=== PATIENT | male | born 1950 | race Caucasian/White ===

== ENCOUNTER → 2017-09-26 10:42 | Outpatient (CLI) | payer MEDICARE, OTHER, SELFPAY ==
[2017-09-26 11:03] LABS: Add Manual Diff / Slide Review NO; Basophils Percent Auto 1.6 % (0-2); Eosinophils Percent Auto 5.4 % (2-4); Hematocrit 35.5 % (41-53); Lymphocytes Percent Auto 16.8 % (25-40); Mean Corpuscular HGB Conc 33.9 % (30-36); Mean Corpuscular Hemoglobin 29.3 PG (26-34); Mean Corpuscular Volume 86.5 fL (80-100); Monocytes Percent Auto 8.3 % (3-14); Neutrophils Absolute Auto 2400 /uL (3000-5900); Neutrophils Percent Auto 67.9 % (50-75); Platelet Count 190 X10^3/uL (150-400); Red Cell Distribution Width 14.8 % (11.6-14.8); White Blood Cell Count 3.5 X10^3/uL (4.5-11.0)
[2017-09-26 11:13] LABS: Alanine Aminotransferase 22 IU/L (21-72); Albumin 4.2 g/dL (3.5-5.0); Albumin Globulin Ratio 1.2 (1.0-2.8); Alkaline Phosphatase 58 U/L (38-126); Aspartate Aminotransferase 21 IU/L (17-59); BUN Creatinine Ratio 23.6 (6-22); Bilirubin Total 0.4 mg/dL (0.2-1.3); Blood Urea Nitrogen 26 mg/dL (9-20); Calcium 9.7 mg/dL (8.4-10.2); Carbon Dioxide 29 mmol/L (22-32); Chloride 104 mmol/L (98-107); Estimated Glomerular Filt Rate > 60.0 mL/min (>60); Globulin 3.6 g/dL (1.7-4.1); Glucose 113 mg/dL (80-110); HEMOLYSIS < 15 (0-50); Potassium 4.8 mmol/L (3.4-5.1); Sodium 140 mmol/L (137-145); Total Protein 7.8 g/dL (6.3-8.2)
[2017-09-26 11:44] LABS: Carcinoembryonic Antigen 2.5 ng/mL (0.1-3.0)
== END ==
PROVIDERS: Family Provider Family Medicine; PCP Family Medicine; Visit Provider Nurse Practitioner Gerontology
DX: C76.0 Malignant neoplasm of head, face and neck (principal); R97.0 Elevated carcinoembryonic antigen [CEA]
CPT/HCPCS: 36415; 80053; 82378; 85025

== ENCOUNTER → 2018-07-09 08:21 | Outpatient (CLI) | payer MEDICARE, OTHER, SELFPAY ==
[2018-07-09 08:36] LABS: Add Manual Diff / Slide Review NO; Basophils Absolute Auto 100 /uL (0-100); Basophils Percent Auto 1.5 % (0-2); Eosinophils Absolute Auto 300 /uL (0-450); Hematocrit 41.3 % (41-53); Hemoglobin 13.9 g/dL (13.5-17.5); Lymphocytes Absolute Auto 1000 /uL (1100-4500); Lymphocytes Percent Auto 20.6 % (25-40); Mean Corpuscular HGB Conc 33.7 % (30-36); Mean Corpuscular Hemoglobin 28.5 PG (26-34); Mean Corpuscular Volume 84.6 fL (80-100); Monocytes Absolute Auto 400 /uL (0-900); Monocytes Percent Auto 9.7 % (3-14); Neutrophils Absolute Auto 2800 /uL (1500-7000); Neutrophils Percent Auto 61.2 % (50-75); Platelet Count 199 X10^3/uL (150-400); Red Blood Cell Count 4.88 X10^6/uL (4.5-5.9); Red Cell Distribution Width 15.1 % (11.6-14.8); White Blood Cell Count 4.6 X10^3/uL (4.5-11.0)
[2018-07-09 08:54] LABS: Alanine Aminotransferase 23 IU/L (21-72); Albumin 4.3 g/dL (3.5-5.0); Albumin Globulin Ratio 1.3 (1.0-2.8); Alkaline Phosphatase 65 U/L (38-126); Aspartate Aminotransferase 25 IU/L (17-59); BUN Creatinine Ratio 16.7 (6-22); Bilirubin Total 0.3 mg/dL (0.2-1.3); Blood Urea Nitrogen 20 mg/dL (9-20); Calcium 9.6 mg/dL (8.4-10.2); Carbon Dioxide 25 mmol/L (22-32); Chloride 106 mmol/L (98-107); Estimated Glomerular Filt Rate > 60.0 mL/min (>60); Globulin 3.4 g/dL (1.7-4.1); Glucose 101 mg/dL (80-110); HEMOLYSIS < 15 (0-50); Lactate Dehydrogenase 329 U/L (313-618); Potassium 5.2 mmol/L (3.4-5.1); Sodium 139 mmol/L (137-145); Total Protein 7.7 g/dL (6.3-8.2)
--- NOTE | 2018-07-09 13:07 | DI.CT.S_ITS ---
PROCEDURE: CT CHEST W CON INDICATIONS: head and neck cancer, BOT TECHNIQUE: After the administration of intravenous contrast, 5 mm thick sections acquired from the pulmonary apices to the posterior costophrenic angles. 7 mm thick coronal and sagittal MIP reformats were acquired. For radiation dose reduction, the following was used: automated exposure control, adjustment of mA and/or kV according to patient size. COMPARISON: [facility], CT, CT SOFT TISSUE NECK W CON, 07/09/2018, 12:30. [facility], CT, CT SOFT TISSUE NECK WITH CONTRAST, 06/11/2017, 11:09. [facility], CT, PE STUDY (CTA CHEST), 08/20/2014, 10:02. [place], [place], PET/CT SKULL BASE TO MID THIGH, 11/08/2016, 9:51. [place], PET NECK TO MID THIGH, 09/20/2017, 9:36. FINDINGS: Image quality: Excellent. Lungs and pleura: There is a linear density in the right lower lobe, most likely a scar. No acute air space opacities. No pleural effusions or pneumothorax. Central and peripheral airways are patent and normal in caliber. Mediastinum: Heart size is normal. No pericardial effusion. No mediastinal or hilar adenopathy by size criteria. Thoracic aorta and central pulmonary arteries are normal in size. Esophagus is normal in caliber. No hiatal hernia. Bones and chest wall: There is a soft tissue asymmetry in the left joanna-vocal cord, which is partially visualized. No suspicious bony lesions. No vertebral body compression fractures. No axillary or supraclavicular adenopathy by size criteria. Numerous small axillary lymph nodes are noted bilaterally, likely reactive. Thyroid gland is normal. Abdomen: There is a 1.3 x 0.9 cm hypodensity near the hepatic dome demonstrating subtle nodular enhancement, most likely a hepatic hemangioma. A 2 mm hypodensity is noted in the posterior segment of the right hepatic lobe, too small to further characterize. Visualized upper abdominal solid organs appear normal. Upper abdominal bowel loops are normal in caliber. IMPRESSION: 1. No CT evidence for recurrent or metastatic disease in the thorax. 2. Soft tissue asymmetry in the left joanna-vocal cord, which is partially visualized. Please see a separate CT neck report. 3. A 1.3 x 0.9 cm hypodensity in liver near the hepatic dome demonstrates subtle nodular enhancement, most likely a hepatic hemangioma. In addition, there is a 2 mm indeterminate hepatic hypodensity, too small to further characterize. Recommend attention to both lesions on followup exam. 4. Multiple small normal sized axillary lymph nodes bilaterally, most likely reactive. Dictated by: Jody Humphries M.D. on 07/09/2018 at 14:25 Approved by: Jody Humphries M.D. on 07/09/2018 at 17:20
--- NOTE | 2018-07-09 13:07 | DI.CT.S_ITS ---
PROCEDURE: CT SOFT TISSUE NECK W CON INDICATIONS: head and neck cancer, BOT TECHNIQUE: After the administration of intravenous contrast, 3.0 mm axial sections acquired from the sella to the aortic arch. Additional oblique axial 3.0 mm sections acquired through the pharynx. 3 mm thick coronal and sagittal reformats were generated. For radiation dose reduction, the following was used: automated exposure control. COMPARISON: [facility], CT, CT SOFT TISSUE NECK WITH CONTRAST, 06/11/2017, 11:09. [facility], [place], PET NECK TO MID THIGH, 09/20/2017, 9:36. [facility], CT, CT SOFT TISSUE NECK WITH CONTRAST, 01/18/2017, 14:30. [facility], CT, SOFT TISSUE NECK W CONTRAST, 11/01/2016, 15:58. FINDINGS: Image quality: Excellent. Lymph nodes: No enlarged lymph nodes seen throughout the neck. Vessels: Visualized vasculature appears patent. Neck spaces: As identified on prior exam, there is a persistent low density focus at the level of the left glottis, with involvement of the left puriform sinus. There appears to be no involvement of the vocal cords and overall is stable compared to prior exam. It is noted this demonstrated low level FDG activity in 2018. The appearance of the base of tongue is stable compared to 2018. Glands: The parotid and submandibular glands appear normal. Thyroid gland is unremarkable. Miscellaneous: Visualized brain and orbits appear normal. Lung apices appear clear. Superficial soft tissues appear normal. Bones: No suspicious bony lesions. Visualized sinuses and mastoids appear unremarkable. IMPRESSION: 1. Stable interval exam demonstrate mild asymmetry at the base of time as well a soft tissue density at the level of the glottis and puriform sinus. No adenopathy. Dictated by: Elizabeth Ramírez M.D. on 07/09/2018 at 13:57 Approved by: Elizabeth Ramírez M.D. on 07/09/2018 at 14:10
== END ==
PROVIDERS: Family Provider Student in an Organized Health Care Education/Training Program; PCP Student in an Organized Health Care Education/Training Program; Visit Provider Internal Medicine Hematology & Oncology
DX: C76.0 Malignant neoplasm of head, face and neck (principal)
CPT/HCPCS: 36415; 70491; 71260; 80053; 83615; 85025; Q9967

== ENCOUNTER → 2018-11-07 11:03 | Outpatient (CLI) | payer MEDICARE, OTHER, SELFPAY ==
[2018-11-07 12:26] LABS: Vitamin D 25 Hydroxy (D3) 44.4 ng/mL (30.0-100.0)
[2018-11-07 12:35] LABS: Free T4, Direct Thyroxine 0.97 ng/dL (0.78-2.19)
[2018-11-07 12:46] LABS: Prostate Specific Antigen Scrn 1.07 ng/mL (0.1-4.0)
[2018-11-07 12:49] LABS: Thyroid Stimulating Hormone 1.42 uIU/mL (0.47-4.68)
== END ==
PROVIDERS: PCP Student in an Organized Health Care Education/Training Program; Visit Provider Student in an Organized Health Care Education/Training Program
DX: E03.9 Hypothyroidism, unspecified (principal); Z12.5 Encounter for screening for malignant neoplasm of prostate; E55.9 Vitamin D deficiency, unspecified
CPT/HCPCS: 36415; 82306; 84439; 84443; G0103

== ENCOUNTER 2020-01-16 19:05 | Emergency (ER) | payer OTHER, SELFPAY ==
[2020-01-16 19:08] VITALS: BP 159/95; PULSE 82; RESP 18; TEMP 36.7; O2SAT 99
[2020-01-16] MEDS: PROPARACAINE 0.5% OPHTH SOL 1 DROPS EYE-RIGHT (19:37)
[2020-01-16] MEDS: FLUORESCEIN 1 MG STRIP EYE-RIGHT (19:37)
[2020-01-16] MEDS: TET,DIPH,PERTUSS(ACELL),VAC/PF 0.5 ML SYRINGE IM (20:17)
[2020-01-16] MEDS: SULFACETAMIDE 10% OPHTH PREPACK 1 BOTTLE MISC (20:17)
--- NOTE | 2020-01-17 05:33 | ED.EYEPROB ---
HPI - Eye Problem General Chief complaint: Eye Problems Stated complaint: SOMETHING IN RIGHT EYE Time Seen by Provider: 01/16/20 19:05 Source: patient Mode of arrival: Ambulatory Limitations: no limitations History of Present Illness HPI Narrative: 69-year-old male nonsmoker with noncontributory medical history presents with a chief complaint of an accidental right eye foreign body. He was working underneath a vehicle when he felt was likely a metallic foreign body fall into his right eye. He now has pain and irritation. He wears glasses but no contacts. He states his last tetanus shot was about 7 years ago. He is otherwise well and free of complaint MD chief complaint: eye pain and eye injury Onset (ago): hour(s) Onset description: sudden Duration: constant Location: right eye Eye Symptoms: redness and foreign body sensation Place: work Mechanism: direct trauma and occurred while hammering/grinding Severity: moderate If Pain, Quality: sharp Associated symptoms: none Treatments Prior to Arrival: none Related Data Patient tetanus UTD: Yes Previous Rx's Medication Instructions Recorded levothyroxine 112 mcg tablet 112 mcg PO QDAY #90 tab 06/05/19 Allergies Allergy/AdvReac Type Severity Reaction Status Date / Time No Known Drug Allergies Allergy Verified 11/07/18 10:03 Review of Systems Constitutional Constitutional: Denies chills, Denies fatigue, Denies fever(s), Denies frequent falls, Denies lethargy and Denies weakness Eyes Eyes: Denies change in vision, Denies eye discharge, Denies irritation and Denies loss of vision ENT Ears, Nose, Mouth, and Throat: Denies change in voice, Denies dizziness, Denies neck pain, Denies sore throat and Denies throat swelling Cardiovascular Cardiovascular: Denies chest pain, Denies irregular heart rhythm, Denies lightheadedness, Denies palpitations, Denies dyspnea, Denies dyspnea on exertion and Denies orthopnea Respiratory Respiratory: Denies cough, Denies dyspnea, Denies dyspnea on exertion and Denies wheezing Gastrointestinal Gastrointestinal: Denies abdominal pain, Denies change in bowel habits, Denies diarrhea, Denies nausea and Denies vomiting Musculoskeletal Musculoskeletal: Denies neck pain and Denies numbness Integumentary/Breasts Skin/Breast: Denies pruritus, Denies erythema, Denies rash and Denies wounds Neurologic Neurologic: Denies behavioral changes, Denies confusion, Denies dizziness, Denies frequent falls, Denies loss of vision, Denies numbness and Denies weakness Psychiatric Psychiatric: Denies anxiety, Denies behavioral changes, Denies confusion, Denies depression, Denies homicidal ideation and Denies suicidal ideation Endocrine Endocrine: Denies fatigue, Denies flushing and Denies palpitations Hematologic/Lymphatic Hematologic/Lymphatic: Denies easy bruising Allergic/Immunologic Allergic/Immunologic: Denies urticaria, Denies throat swelling and Denies wheezing Patient History Family History Father Age: 89 Hx of CABG Mother Age: 87 Pacemaker alcohol intake frequency: 0-2 drinks per day Substance Use Type: does not use Exam Narrative Exam Narrative: GEN: AOx3 and in mild distress EYES: Pupils are equal, round, and reactive to light and accommodation. Extraoccular muscles are intact bilaterally. There is no subconjunctival hemorrhage or exudate. small metallic FB noted at 9 o'clock position. Very small corneal abrasion with fluorescein uptake noted under UV lamp CHEST: Lungs are clear to auscultation bilaterally and free of wheezes, rales, or rhonchi. Heart rate is regular rhythm, there are no murmurs, clicks, rubs, or gallops. There is no chest wall tenderness. ABD: Abdomen is soft and nontender. There is no guarding or rebound. Bowel sounds are normal in all 4 quadrants. There is no mass or organomegaly. EXT: Full painless ROM of all extremities with no loss of sensation or strength. SKIN: Warm, pink, and dry. No erythema or rash Initial Vital Signs Initial Vital Signs: Vital Signs Temperature 98.1 F 01/16/20 19:08 Pulse Rate 82 01/16/20 19:08 Respiratory Rate 18 01/16/20 19:08 Blood Pressure 159/95 H 01/16/20 19:08 Pulse Oximetry 99 01/16/20 19:08 Course Orders Ordered: Discontinued Medications Diphtheria/Tetanus/Acell Pertussis (Adacel) 0.5 ml IM .ONCE ONE Stop: 01/16/20 20:05 Last Admin: 01/16/20 20:17 Dose: 0.5 ml Documented by: GAETANO Fluorescein Sodium (Ful-Meg) 1 mg EYE-RIGHT NOW ONE Stop: 01/16/20 19:22 Last Admin: 01/16/20 19:37 Dose: 1 mg Documented by: MARK Proparacaine HCl (Parcaine 0.5% Ophth Kiki) 1 drops EYE-RIGHT NOW ONE Stop: 01/16/20 19:22 Last Admin: 01/16/20 19:37 Dose: 1 drop Documented by: MARK Sulfacetamide (Bleph-10 Prepack) 1 bottle MISC SEEINSTR ONE Stop: 01/16/20 20:05 Last Admin: 01/16/20 20:17 Dose: 1 bottle Documented by: GAETANO Discharge Plan Departure Patient Disposition: Home Clinical Impression: Acute foreign body of cornea Qualifiers: Encounter type: initial encounter Laterality: right Qualified Code(s): T15.01XA - Foreign body in cornea, right eye, initial encounter Discharge Date/Time: 01/16/20 20:25 Instructions: DI for Corneal Foreign Body-Eye Activity Restrictions/Additional Instructions: *You have been diagnosed with [foreign body right eye] *What to do: *Take medications as directed *Follow up with your primary care provider in 2-3 days, call for an appointment. Let them know you were seen in the Emergency Department and that we ask that you be seen in follow up *Return to ER if you should have any new, worsening or concerning symptoms, such as [increasing pain, redness, drainage, change in vision or other bothersome symptoms] Prescriptions: No Action levothyroxine 112 mcg tablet 112 mcg PO QDAY Qty: 90 RF: 3 Referrals: Chase Perez MD [Primary Care Provider] - Pancho Mendoza MD [Physician] -
== END 2020-01-16 20:25 | disposition home or self-care (01) ==
PROVIDERS: Emergency Provider Emergency Medicine; PCP Student in an Organized Health Care Education/Training Program
DX: T15.01XA Foreign body in cornea, right eye, initial encounter (principal); Z23 Encounter for immunization; Y99.0 Civilian activity done for income or pay
CPT/HCPCS: 90471; 99283; 90715

== ENCOUNTER → 2020-09-08 15:24 | Outpatient (CLI) | payer MEDICARE, OTHER, SELFPAY ==
[2020-09-08 16:46] LABS: TSH w/ Reflex to FT4 0.11 uIU/mL (0.47-4.68)
== END ==
PROVIDERS: PCP Student in an Organized Health Care Education/Training Program; Referring Provider Student in an Organized Health Care Education/Training Program; Visit Provider Student in an Organized Health Care Education/Training Program
DX: E03.9 Hypothyroidism, unspecified (principal)
CPT/HCPCS: 36415; 84439; 84443

== ENCOUNTER → 2020-12-08 17:13 | Outpatient (CLI) | payer MEDICARE, OTHER, SELFPAY ==
[2020-12-08 18:45] LABS: TSH w/ Reflex to FT4 1.25 uIU/mL (0.47-4.68)
== END ==
PROVIDERS: PCP Student in an Organized Health Care Education/Training Program; Referring Provider Student in an Organized Health Care Education/Training Program; Visit Provider Student in an Organized Health Care Education/Training Program
DX: E03.9 Hypothyroidism, unspecified (principal)
CPT/HCPCS: 36415; 84443

== ENCOUNTER 2021-09-10 09:24 | Emergency (ER) | payer MEDICARE, OTHER, SELFPAY ==
[2021-09-10 09:30] VITALS: BP 137/94; PULSE 96; RESP 20; TEMP 37; O2SAT 98; BMI 24.3
--- NOTE | 2021-09-10 10:16 | DI.RAD.S_ITS ---
PROCEDURE: XR CHEST 2V INDICATIONS: fall TECHNIQUE: 2 views of the chest were acquired. COMPARISON: [facility], , CHEST 1 VIEW, 08/20/2014, 9:23. FINDINGS: Surgical changes and devices: None. Lungs and pleura: Lungs are clear. No pleural effusions or pneumothorax. X-ray demonstrates findings suggestive of pulmonary vascular congestion however the appearance is similar compared to prior in this may be baseline. Mediastinum: Mediastinal contours are normal. Heart size is normal. Bones and chest wall: No suspicious bony abnormalities. Soft tissues appear unremarkable. IMPRESSION: 1. No acute traumatic abnormality. 2. X-ray appearance suggest pulmonary vascular congestion, however the appearance is similar compared to the prior x-ray and therefore this is probably baseline appearance Dictated by: Zi Jarrell M.D. on 09/10/2021 at 9:48 Approved by: Zi Jarrell M.D. on 09/10/2021 at 9:49
--- NOTE | 2021-09-10 10:16 | DI.CT.S_ITS ---
PROCEDURE: CT CERVICAL SPINE WO CON INDICATIONS: fall off ladder TECHNIQUE: Noncontrast 3 mm thick sections acquired from the skull base to the T4 level. Sagittal and coronal reformats were then constructed. For radiation dose reduction, the following was used: automated exposure control, adjustment of mA and/or kV according to patient size. COMPARISON: None. FINDINGS: Image quality: Excellent. Bones: No fractures or dislocations. Visualized superior ribs are intact. There are multilevel degenerative changes. Multilevel disc disease is seen with multilevel disc space narrowing and disc osteophytes. Soft tissues: Prevertebral soft tissues are normal in thickness. No paravertebral hematomas. No apical pneumothoraces. IMPRESSION: 1. No acute traumatic abnormality of the cervical spine. 2. Multilevel disc disease. Dictated by: Zi Jarrell M.D. on 09/10/2021 at 9:37 Approved by: Zi Jarrell M.D. on 09/10/2021 at 9:40
--- NOTE | 2021-09-10 10:16 | DI.CT.S_ITS ---
PROCEDURE: CT HEAD/BRAIN WO CON INDICATIONS: fall off ladder TECHNIQUE: Noncontrast 4.5 mm thick angled axial sections acquired from the foramen magnum to the vertex, with coronal and sagittal reformats. For radiation dose reduction, the following was used: automated exposure control, adjustment of mA and/or kV according to patient size. COMPARISON: None. FINDINGS: Image quality: Excellent. CSF spaces: Basal cisterns are patent. No extra-axial fluid collections. Ventricles are normal in size and shape. Brain: No midline shift. No intracranial masses or hemorrhage. Oliveira-white matter interface is normal. Skull and face: Calvarium and visualized facial bones are intact, without suspicious lesions. Sinuses: Visualized sinuses and mastoids are clear. IMPRESSION: No acute intracranial abnormality. Dictated by: Zi Jarrell M.D. on 09/10/2021 at 9:35 Approved by: Zi Jarrell M.D. on 09/10/2021 at 9:37
--- NOTE | 2021-09-10 10:16 | ED.HEATRA ---
HPI - Head Injury General Chief complaint: Head Injury Stated complaint: Fell hit his back of head Time Seen by Provider: 09/10/21 10:10 Source: patient Mode of arrival: Family Vehicle History of Present Illness HPI Narrative: Patient is a 71-year-old male history of hypothyroid who presents after fall off ladder. He said he was on a ladder getting ready to get onto the roof to clean out the valleys in the roof. His head was just above the gutter when the ladder slipped any fell into a Rota tenderness but escalante hit his head. No loss of consciousness no vomiting no numbness tingling or weakness. No other complaints cell little left shoulder and elbow pain but is moving everything fine. He is not on antiplatelet or anticoagulation medication. He does have a laceration posterior scalp. Tetanus is up-to-date Related Data Previous Rx's Medication Instructions Recorded levothyroxine 100 mcg tablet 100 mcg PO DAILY #90 tabs 12/10/20 Allergies Allergy/AdvReac Type Severity Reaction Status Date / Time No Known Drug Allergies Allergy Verified 09/08/20 15:07 Review of Systems Review of Systems Narrative: GENERAL: Denies chills, fatigue, malaise, fever, sweats, travel HEENT: Denies sinus pain, ear pain, sore throat, difficulty swallowing, neck pain RESPIRATORY: Denies dyspnea, cough, wheezing, hemoptysis, sputum. CARDIOVASCULAR: Denies chest pain, palpitations, orthopnea, edema GASTROINTESTINAL: Denies nausea, vomiting, abdominal pain, diarrhea, constipation, melena. : Denies dysuria, frequency, incontinence, hematuria, urinary retention, flank pain. MUSCULOSKELETAL: Denies weakness, joint pain, or bony pain SKIN: See HPI NEUROLOGIC: See HPI PSYCHIATRIC: No concerning psychosocial issues. 12 point review of systems is negative except for those stated above and HPI Patient History Medical History Crushing injury of distal finger, subsequent encounter (09/03/15) Family History Father Age: 91 Hx of CABG Mother Age: 89 Pacemaker Social History Smoking Status: Current every day smoker Smoking Status: Current every day smoker tobacco type: cigarettes alcohol intake frequency: 0-2 drinks per day Substance Use Type: does not use Exam Initial Vital Signs Initial Vital Signs: Vital Signs Temperature 98.6 F 09/10/21 09:30 Pulse Rate 96 H 09/10/21 09:30 Respiratory Rate 20 09/10/21 09:30 Blood Pressure 137/94 H 09/10/21 09:30 Pulse Oximetry 98 09/10/21 09:30 Oxygen Delivery Method 09/10/21 09:30 GENERAL: Well-appearing, well-nourished and in no acute distress. HEENT: Head normocephalic,, EOMI, pupils reactive, face symmetric, moist mucous membranes, no hemotympanum, no septal hematoma NECK: Supple, full range of motion, no step-offs, nontender on vertebrae CARDIOVASCULAR: Regular rate and rhythm without murmurs, rubs or gallops. RESPIRATORY: Breath sounds equal bilaterally, no wheezes rales or rhonchi. No crepitations, no subcutaneous air, chest is nontender, no signs of trauma ABDOMEN: Soft, nontender. Normoactive bowel sounds all 4 quadrants. No guarding or rebound. BACK: Nontender vertebrae, no step-offs, no contusions PELVIS: stable. EXTREMITIES: Normal range of motion, no clubbing or edema. Right upper extremity: Within normal limits Left upper extremity: Within normal limits Right lower extremity: Within normal limits Left lower extremity:Within normal limits NEUROLOGICAL: Cranial nerves II through XII grossly intact. Normal gait and speech. SKIN: Posterior scalp 4 cm laceration but intermittent areas of bleeding Procedures Laceration Repair Laceration 1: Size (cm): 5 Description: irregular Skin layer closed with: jonathan (3) Course Orders Ordered: ED Orders 09/10/21 10:16 CT cervical spine wo con Stat CT head/brain wo con Stat Chest [XR chest 2V] Stat Vital Signs Vital signs: Vital Signs - 8 hr 09/10/21 09:30 09/10/21 11:16 Temperature 98.6 F Pulse Rate 96 H 66 Respiratory Rate 20 19 Blood Pressure 137/94 H 132/78 Pulse Oximetry 98 99 Oxygen Delivery Method Room Air Room Air MDM - Head Injury Imaging Data CT scan - head: Radiologist's Impression: Signed Patient: Stephane Sun MR#: [id number] : 1950 Acct:[id number] Age/Sex: 71 / M Date of Service: 09/10/21 Loc: ED Accession Number: [id number] ?? Procedure: CT head/brain wo con Ordering Provider: Isha Mane D.O. PROCEDURE:? CT HEAD/BRAIN WO CON ? INDICATIONS:? fall off ladder ? TECHNIQUE:? Noncontrast 4.5 mm thick angled axial sections acquired from the foramen magnum to the vertex, with coronal and sagittal reformats.? For radiation dose reduction, the following was used:? automated exposure control, adjustment of mA and/or kV according to patient size.? ? COMPARISON:? None. ? FINDINGS:? Image quality:? Excellent.? ? CSF spaces:? Basal cisterns are patent.? No extra-axial fluid collections.? Ventricles are normal in size and shape.? ? Brain:? No midline shift.? No intracranial masses or hemorrhage.? Oliveira-white matter interface is normal.? ? Skull and face:? Calvarium and visualized facial bones are intact, without suspicious lesions.? ? Sinuses:? Visualized sinuses and mastoids are clear.? ? IMPRESSION:? No acute intracranial abnormality. ? ? Dictated by: Zi Jarrell M.D. on 09/10/2021 at 9:35 ? ? CT - cervical spine: Radiologist's Impression: [place] [address] CT Scan Report Signed Patient: Stephane Sun MR#: [id number] : 1950 Acct:[id number] Age/Sex: 71 / M Date of Service: 09/10/21 Loc: ED Accession Number: [id number] ?? Procedure: CT cervical spine wo con Ordering Provider: Isha Mane D.O. PROCEDURE:? CT CERVICAL SPINE WO CON ? INDICATIONS:? fall off ladder ? TECHNIQUE:? Noncontrast 3 mm thick sections acquired from the skull base to the T4 level.? Sagittal and coronal reformats were then constructed.? For radiation dose reduction, the following was used:? automated exposure control, adjustment of mA and/or kV according to patient size.? ? COMPARISON:? None. ? FINDINGS:? Image quality:? Excellent.? ? Bones:? No fractures or dislocations.? Visualized superior ribs are intact.? There are multilevel degenerative changes.? Multilevel disc disease is seen with multilevel disc space narrowing and disc osteophytes. ? Soft tissues:? Prevertebral soft tissues are normal in thickness.? No paravertebral hematomas.? No apical pneumothoraces.? ? ? IMPRESSION:? 1. No acute traumatic abnormality of the cervical spine. 2. Multilevel disc disease.? ? Dictated by: Zi Jarrell M.D. on 09/10/2021 at 9:37 ? ? Chest x-ray: Radiologist's Impression: [address] [address] [address] Scan Report Signed Patient: Stephane Sun MR#: [id number] : 1950 Acct:[id number] Age/Sex: 71 / M Date of Service: 09/10/21 Loc: ED Accession Number: [id number] ?? Procedure: CT cervical spine wo con Ordering Provider: Isha Mane D.O. PROCEDURE:? CT CERVICAL SPINE WO CON ? INDICATIONS:? fall off ladder ? TECHNIQUE:? Noncontrast 3 mm thick sections acquired from the skull base to the T4 level.? Sagittal and coronal reformats were then constructed.? For radiation dose reduction, the following was used:? automated exposure control, adjustment of mA and/or kV according to patient size.? ? COMPARISON:? None. ? FINDINGS:? Image quality:? Excellent.? ? Bones:? No fractures or dislocations.? Visualized superior ribs are intact.? There are multilevel degenerative changes.? Multilevel disc disease is seen with multilevel disc space narrowing and disc osteophytes. ? Soft tissues:? Prevertebral soft tissues are normal in thickness.? No paravertebral hematomas.? No apical pneumothoraces.? ? ? IMPRESSION:? 1. No acute traumatic abnormality of the cervical spine. 2. Multilevel disc disease.? ? Dictated by: Zi Jarrell M.D. on 09/10/2021 at 9:37 ? ? MDM Narrative Medical decision making narrative: Patient overall appears well after fall off ladder. He does have a posterior head laceration which is easily stapled. Patient not on any anticoagulation. He seems like he is fortunate without any injury after fall. Discharge Plan Departure Patient Disposition: Home Clinical Impression: Laceration of scalp, Closed head injury Instructions: DI for Laceration Repair -- [place], DI for Closed Head Injury Activity Restrictions/Additional Instructions: *You have been diagnosed with fall, jonathan *What to do: Have jonathan removed in about 5-7 days. No hair cut. May bathe and shower. No swimming. Please avoid ladders May sleep He makes parents some mild headache *Continue to take medications as directed Tylenol or ibuprofen as needed for pain *Follow up with your primary care provider in 2-3 days or call [phone] *Return to ER if you should have persistent vomiting, redness, increased pain, confusion or any new, worsening or concerning symptoms Prescriptions: No Action levothyroxine 100 mcg tablet 100 mcg PO DAILY Qty: 90 3RF Hold Instructions: Need follow up lab Referrals: Chase Perez MD [Primary Care Provider] - Visit Report Forms: Patient Portal/API
[2021-09-10 11:16] VITALS: BP 132/78; PULSE 66; RESP 19; O2SAT 99
== END 2021-09-10 11:17 | disposition home or self-care (01) ==
PROVIDERS: Emergency Provider Emergency Medicine; PCP Student in an Organized Health Care Education/Training Program
DX: S01.01XA Laceration without foreign body of scalp, initial encounter (principal); W11.XXXA Fall on and from ladder, initial encounter
CPT/HCPCS: 12002; 70450; 71046; 72125; 99284

== ENCOUNTER → 2022-01-16 13:40 | Outpatient (CLI) | payer MEDICARE, OTHER, SELFPAY ==
[2022-01-16 15:36] LABS: Cholesterol 179 mg/dL (140-199); HDL Cholesterol 28 mg/dL (40-60); LDL Cholesterol Calculated 127 mg/dL (<100); Triglycerides 119 mg/dL (35-150)
[2022-01-16 16:08] LABS: TSH w/ Reflex to FT4 1.91 uIU/mL (0.47-4.68)
[2022-01-16 16:09] LABS: Prostate Specific Antigen Scrn 1.12 ng/mL (0.1-4.0)
== END ==
PROVIDERS: PCP Student in an Organized Health Care Education/Training Program; Referring Provider Student in an Organized Health Care Education/Training Program; Visit Provider Student in an Organized Health Care Education/Training Program
DX: E03.9 Hypothyroidism, unspecified (principal); Z12.5 Encounter for screening for malignant neoplasm of prostate; E78.2 Mixed hyperlipidemia
CPT/HCPCS: 36415; 80061; 84443; G0103

== ENCOUNTER → 2022-02-06 09:58 | Outpatient (CLI) | payer MEDICARE, OTHER, SELFPAY ==
[2022-02-06 13:23] LABS: COVID19 -Nasal RAPID Negative (Negative)
== END ==
PROVIDERS: PCP Student in an Organized Health Care Education/Training Program; Visit Provider Surgery
DX: Z01.812 Encounter for preprocedural laboratory examination (principal); Z20.822 Contact with and (suspected) exposure to COVID-19
CPT/HCPCS: 87635; C9803

== ENCOUNTER 2022-02-07 08:54 | Day surgery (SDC) | payer MEDICARE, OTHER, SELFPAY ==
--- NOTE | 2022-02-07 | PATH_ITS ---
[facility] Accession Number: [id number] . 01 Material submitted: . rectum - RECTAL MASS AND RECTAL POLYP . 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 Please see comment. Hyperplastic polyp, one fragment. MRV 02/08/2022 1250 Local . 01 Comment: As part of routine quality nurse, Dr. Grimaldo also reviewed this case and agrees with the diagnosis. Dr. Bennett gave preliminary results to Noelle in Dr. Amado's office on 02/08/2022. Mismatch repair IHC will be performed and the results reported as an addendum. . 01 Electronically signed: . Fani Bennett MD, Pathologist NPI- [id number] . 01 Gross description: . RECTAL MASS AND RECTAL POLYP: Received in formalin are multiple fragment(s) of tavarez, soft tissue measuring 0.2 x 0.2 x 0.2 cm to 0.5 x 0.4 x 0.3 cm submitted entirely in 1 cassette(s) /ROBE 02/07/20222030 Local . 01 Pathologist provided ICD-10: C20, K62.1 . 01 CPT . 506850, J07702, P98004 Specimen Comment: A courtesy copy of this report has been sent to [phone] Performed at: 01 [facility] [address] [place] [id number] MD Triston Lopez MD Phone: [phone]
[2022-02-07 09:16] VITALS: BMI 24.3
[2022-02-07 09:24] VITALS: BP 99/74; PULSE 67; RESP 20; TEMP 36.6; O2SAT 100
--- NOTE | 2022-02-07 09:27 | PM.HP.1 ---
History of Present Illness History of Present Illness Date Patient Seen: 02/07/22 Time Patient Seen: 09:27 Chief complaint: Colonoscopy w/ Hemrroidal Banding Narrative: 72-year-old male with painless rectal bleeding here for diagnostic colonoscopy possible hemorrhoidal banding. Please refer to the H& P from December 2021 for further detail. 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) Family & Social History Family History Father Age: 91 Hx of CABG Mother Age: 89 Pacemaker Social History: household members spouse Tobacco & Substance use: Smoking Status Current every day smoker alcohol intake never alcohol intake frequency 0-2 drinks per day Substance Use Type does not use Meds Home Medications and Allergies Home Medications Medication Instructions Recorded Confirmed Type levothyroxine 100 mcg tablet 100 mcg PO DAILY #90 tabs 01/16/22 02/07/22 Rx Allergies Allergy/AdvReac Type Severity Reaction Status Date / Time No Known Drug Allergies Allergy Verified 02/07/22 09:15 Exam Narrative Exam Narrative: General adult male alert oriented no acute distress Assessment & Plan Assessment & Plan narrative: 72-year-old male with painless rectal bleeding here for colonoscopy possible hemorrhoidal banding.. Technical details were discussed. Risks, benefits, alternatives explained. Risks including but not limited to myocardial infarction, aspiration, bleeding, pain, missed lesion, incomplete examination, need for further radiographic studies, colonic perforation, and need for major abdominal surgery were discussed. All questions were answered to their satisfaction, and they are in agreement with this plan. Time Spent With Patient Critical Care time: I spent a total of [] minutes of critical care time on this patient's care today; this time is exclusive of procedural time.
[2022-02-07] MEDS: LACTATED RINGERS 1,000 ML 200 ML IV (09:37)
--- NOTE | 2022-02-07 10:00 | PM.OP.COLON ---
Operative Date/Time/Diagnoses Date of procedure: 02/07/22 Time of procedure: 10:00 Pre-op diagnosis: Rectal bleeding Post-op diagnosis: same Procedure & Clinicians Study performed: Colonoscopy Same procedure as scheduled: Yes Indications: Rectal bleeding Surgeon: Faraz Amado Procedure Notes Procedure in detail: The history and physical was performed/updated and the patient is ASA class is 2. The procedure was discussed in detail with the patient. Potential risks complications including infection, bleeding, missed diagnosis, perforation, need for surgery, and were explained. Their questions were answered and informed consent was obtained. Patient was brought to the procedure room and placed standard monitoring equipment. The patient's vital signs were monitored continuously throughout the entire procedure. Prior to starting time-out was performed. The patient was placed in the left lateral recumbent position. Procedural sedation was administered by anesthesia. Examination began with a thorough inspection of the perianal area there was no evidence of fissures, fistulae, external hemorrhoids or cutaneous malignancy. The colonoscopy scope was then placed into the anal canal and was advanced to the cecum, which was identified by the ileocecal valve, the appendiceal orifice and the confluence of the taenia. The scope was then slowly withdrawn examining colon thoroughly in all directions, irrigating it of any residual stool. FINDINGS 1. Large friable circumferential near obstructing rectal mass at 15 cm from the anal verge. Appearance is consistent with rectal carcinoma Not palpable with digital exam 2. No synchronous lesions The patient tolerated the procedure well. They will be discharged once criteria are met. The prep was of good/excellent quality. The withdrawl time was 7 minutes. Specimen(s): other (Rectal mass) Complications: none Impression: Suspected Rectal cancer Post-procedure Plan for aftercare: Will follow-up in surgical office when pathology results are back Disposition: same day surgery
[2022-02-07 10:36] VITALS: BP 111/71; PULSE 60; RESP 16; TEMP 36.1; O2SAT 98
[2022-02-07 10:41] VITALS: BP 87/59; PULSE 58; RESP 14; O2SAT 98
[2022-02-07 10:46] VITALS: BP 90/63; PULSE 68; RESP 15; O2SAT 98
[2022-02-07 10:53] VITALS: BP 102/68; PULSE 56; RESP 14; TEMP 36.5; O2SAT 100
[2022-02-07 11:06] VITALS: BP 111/70; PULSE 60; RESP 14; TEMP 36.9; O2SAT 98
== END 2022-02-07 11:29 | disposition home or self-care (01) ==
PROVIDERS: PCP Student in an Organized Health Care Education/Training Program; Referring Provider Surgery; Visit Provider Surgery
PROC: 0DJD8ZZ Inspection of Lower Intestinal Tract, Via Natural or Artificial Opening Endoscopic (ICD-10-PCS; CPT 45378; principal; 2022-02-07 10:00)
DX: C20 Malignant neoplasm of rectum (principal); F17.210 Nicotine dependence, cigarettes, uncomplicated
CPT/HCPCS: 45380; J2704

== ENCOUNTER → 2022-03-09 08:29 | Outpatient (CLI) | payer MEDICARE, OTHER, SELFPAY ==
--- NOTE | 2022-03-09 08:30 | DI.CT.S_ITS ---
PROCEDURE: CT CHEST ABD PEL W CON INDICATIONS: new diagnosis of rectal cancer TECHNIQUE: After the administration of oral and intravenous contrast, axial sections acquired from the supraclavicular neck to the pubic symphysis. Coronal and sagittal reformats were performed. For radiation dose reduction, the following was used: automated exposure control, adjustment of mA and/or kV according to patient size. COMPARISON: PET-CT 09/20/2017 FINDINGS: Image quality: Good Lungs and pleura: No dense consolidation. There is scattered scarring and atelectasis. Tiny pulmonary nodules and granulomas are present. No overtly suspicious nodule is seen. These can be followed on subsequent restaging imaging. For example 121 on the right. No pleural effusions. Mediastinum, heart, and esophagus: Nonspecific thickening of the distal esophagus. There is suspected reflux in the esophagus. No pathologic adenopathy by size criteria. There are coronary calcifications. Heart size is within normal limits. Chest wall and thyroid: Prominent bilateral axillary lymph nodes may be reactive in etiology. Chest wall is otherwise unremarkable. Slight excavatum morphology. Solid organs: A 9 mm lesion is seen at the liver dome with a right dot sign at the periphery (/53). Subcentimeter lesions are too small to characterize. This was present in 2018 and was not hypermetabolic. Gallbladder is under distended. No pathologic dilation of the biliary tree or pancreatic duct. Borderline splenic enlargement. No adrenal nodules. No hydronephrosis. Vessels and lymph nodes: No abdominal aortic aneurysm. The main portal vein is patent. Moderate atherosclerotic disease with calcified and noncalcified plaque. Ulcerating plaque is seen in the mid abdominal aorta as well. Image . There is an enlarged suspected portal caval lymph node () measuring 2 cm. Bowel and peritoneum: Oral contrast is seen in loops of bowel. No bowel obstruction. There is a bulky rectosigmoid mass. Bilateral inguinal hernias containing loops of bowel. Moderate overall stool burden, particularly in the cecum. No pathologic ascites. Body wall: Unremarkable. Bilateral fat and bowel containing inguinal hernias. Pelvis: Not well evaluated on CT. Bladder is under distended. Prostate is heterogeneous with some calcifications. Bones: Degenerative changes without definite suspicious abnormality. IMPRESSION: Bulky rectosigmoid malignancy compatible with reported tumor. Local T staging is better performed with MRI pelvis. There is an enlarged portal caval lymph node, indeterminate. No active disease identified in the chest. Hypodense liver dome lesion is probably stable, possibly hemangioma. Consider future restaging study with PET-CT or MRI abdomen plus CT chest. Other findings as above. Dictated by: Kike Brown M.D. on 03/09/2022 at 11:29 Approved by: Kike Brown M.D. on 03/09/2022 at 11:42
== END ==
PROVIDERS: PCP Student in an Organized Health Care Education/Training Program; Referring Provider Internal Medicine Hematology & Oncology; Visit Provider Internal Medicine Hematology & Oncology
DX: C20 Malignant neoplasm of rectum (principal); R59.0 Localized enlarged lymph nodes; K76.9 Liver disease, unspecified; K40.20 Bilateral inguinal hernia, without obstruction or gangrene, not specified as recurrent; I25.10 Atherosclerotic heart disease of native coronary artery without angina pectoris; I70.0 Atherosclerosis of aorta
CPT/HCPCS: 71260; 74177; Q9967

== ENCOUNTER → 2022-03-10 09:08 | Outpatient (CLI) | payer MEDICARE, OTHER, SELFPAY ==
--- NOTE | 2022-03-10 09:09 | DI.MRI.S_ITS ---
PROCEDURE: MR PELIS WO/W CON INDICATIONS: rectal cancer staging TECHNIQUE: Coronal HASTE, sagittal T2 FSE, axial T1 FSE, axial and coronal nonbreath-hold T2 FSE. Axial dynamic VIBE during administration of contrast. Post-contrast axial and coronal VIBE/2-D FLASH with fat saturation from the iliac crests to the symphysis. Optional diffusion weighted imaging and ADC may be performed. COMPARISON: [facility], CT, CT CHEST ABD PEL W CON, 03/09/2022, 10:02. FINDINGS: Image quality: Good, somewhat motion degraded on some sequences. Rectum: Morphology: Bulky polypoid tumor Clock face of tumor involvement: Semi circumferential Mucinous (high T2 signal): No Craniocaudal length: 5.7 centimeters Distance to anal verge: 8 centimeters. Distance to top of sphincter complex/anorectal junction: 5.2 centimeters Relationship to anterior peritoneal reflection: Straddles Tumor at or below puborectalis sling: Above T staging: Although the tumor is very bulky, there is no measurable component extending beyond the muscularis. However there are tumor spiculations adjacent to the of the peritoneal reflection where the muscularis is indistinct. 07/20. T3 a. No definite extramural venous invasion. Pelvic organ involvement: Genitourinary: Not involved. The bladder is underdistended which limits evaluation. The prostate is also heterogeneous and difficult to evaluate on this study. Pelvic sidewall (obturator internus, piriformis, ischiococcygeus muscles): Not involved Pelvic floor (pubococcygeus, iliococcygeus, puborectalis, levator plate): Not involved Sacrum: Not involved Vessels (internal and external iliac arteries and veins): Not involved, no aneurysm Nerves (lumbosacral nerve roots): Not involved Regional lymph nodes (mesorectal, inguinal, iliac): There is an irregular upper mesorectal lymph node measuring 6 millimeters (14/34), about 1 centimeter from the sacrum. In addition, there is small suspicious perisigmoid lymph node (14/30) measuring 6 millimeters. Other bowel and peritoneum: Bilateral inguinal hernias, containing a small portion of bowel on the right. Bones: No acute or suspicious osseous abnormality. IMPRESSION: Proposed MR staging is T3A, N1. Bulky rectosigmoid tumor is present with tumor spiculations and indistinct muscularis layer at the region of the peritoneal reflection. Other descriptions as above. Dictated by: Kike Brown M.D. on 03/10/2022 at 11:26 Approved by: Kike Brown M.D. on 03/10/2022 at 11:41
== END ==
PROVIDERS: PCP Student in an Organized Health Care Education/Training Program; Referring Provider Internal Medicine Hematology & Oncology; Visit Provider Internal Medicine Hematology & Oncology
DX: C20 Malignant neoplasm of rectum (principal); K40.20 Bilateral inguinal hernia, without obstruction or gangrene, not specified as recurrent
CPT/HCPCS: 72197

== ENCOUNTER → 2022-03-18 09:04 | Outpatient (CLI) | payer MEDICARE, OTHER, SELFPAY ==
[2022-03-18 10:16] LABS: Add Manual Diff / Slide Review NO; Basophils Absolute Auto 100 /uL (0-100); Basophils Percent Auto 1.3 % (0-2); Eosinophils Absolute Auto 300 /uL (0-450); Eosinophils Percent Auto 4.9 % (2-4); Hematocrit 41.8 % (41-53); Hemoglobin 13.8 g/dL (13.5-17.5); Lymphocytes Absolute Auto 1000 /uL (1100-4500); Mean Corpuscular HGB Conc 32.9 % (30-36); Monocytes Absolute Auto 500 /uL (0-900); Neutrophils Absolute Auto 4000 /uL (1500-7000); Neutrophils Percent Auto 67.8 % (50-75); Platelet Count 269 X10^3/uL (150-400); Red Blood Cell Count 5.29 X10^6/uL (4.5-5.9); White Blood Cell Count 5.9 X10^3/uL (4.5-11.0)
[2022-03-18 10:41] LABS: Alanine Aminotransferase 19 IU/L (<50); Albumin 4.1 g/dL (3.5-5.0); Albumin Globulin Ratio 1.1 (1.0-2.8); Alkaline Phosphatase 87 U/L (38-126); Aspartate Aminotransferase 26 IU/L (17-59); BUN Creatinine Ratio 16.2 (6-22); Bilirubin Total 0.4 mg/dL (0.2-1.3); Blood Urea Nitrogen 18 mg/dL (9-20); Calcium 9.4 mg/dL (8.4-10.2); Carbon Dioxide 26 mmol/L (22-32); Chloride 101 mmol/L (98-107); Estimated Glomerular Filt Rate > 60 mL/min (>60); Globulin 3.6 g/dL (1.7-4.1); Glucose 92 mg/dL (80-110); HEMOLYSIS < 15 (0-50); Potassium 4.7 mmol/L (3.4-5.1); Sodium 137 mmol/L (137-145); Total Protein 7.7 g/dL (6.3-8.2)
== END ==
PROVIDERS: PCP Student in an Organized Health Care Education/Training Program; Referring Provider General Practice; Visit Provider General Practice
DX: C20 Malignant neoplasm of rectum (principal)
CPT/HCPCS: 36415; 80053; 85025

== ENCOUNTER → 2022-03-28 11:35 | Outpatient (CLI) | payer MEDICARE, OTHER, SELFPAY ==
[2022-03-28 13:11] LABS: COVID19 -Nasal RAPID Negative (Negative)
== END ==
PROVIDERS: PCP Student in an Organized Health Care Education/Training Program; Visit Provider Surgery
DX: Z01.812 Encounter for preprocedural laboratory examination (principal); Z20.822 Contact with and (suspected) exposure to COVID-19
CPT/HCPCS: 87635; C9803

== ENCOUNTER 2022-03-29 17:23 | Observation (INO) | payer MEDICARE, OTHER, SELFPAY ==
[2022-03-27 15:00] VITALS: BMI 27.1
[2022-03-29] VITALS (13 sets, daily range): BP systolic 106–146; BP diastolic 70–97; PULSE 59–80; RESP 12–18; TEMP 35.9–36.5; O2SAT 94–100; BMI 26.3
--- NOTE | 2022-03-29 | DI.RAD.S_ITS ---
PROCEDURE: XR CHEST 1V INDICATIONS: POST OP PORT TECHNIQUE: One view of the chest was acquired. COMPARISON: [facility], CR, XR CHEST 2V, 09/10/2021, 10:06. FINDINGS: Surgical changes and devices: Interval placement of a right chest IJ MediPort. The tip projects over the expected location of the cavoatrial junction. Lungs and pleura: Mild hazy perihilar bilateral alveolar opacities, accentuated by low lung volumes. No pleural effusion or pneumothorax. Mediastinum: Slight patient rotation accentuates the heart size which is felt to be within normal limits. No central vascular congestion or change in aortic contour. Bones and chest wall: No suspicious bony lesions. Overlying soft tissues appear unremarkable. Degenerative endplate spurs in the thoracic spine. IMPRESSION: 1. Placement of right IJ MediPort without evidence of pneumothorax. 2. Bilateral perihilar alveolar opacities accentuated by low lung volumes, mildly increased in prominence compared to the prior study. This is probably atelectatic change. Correlate clinically. Dictated by: Marcia Saucedo M.D. on 03/30/2022 at 9:38 Approved by: Marcia Saucedo M.D. on 03/30/2022 at 9:41
--- NOTE | 2022-03-29 | DI.CT.S_ITS ---
PROCEDURE: CT STROKE INDICATIONS: CODE STROKE TECHNIQUE: Noncontrast 4.5 mm thick angled axial sections acquired from the foramen magnum to the vertex, with coronal reformats. For radiation dose reduction, the following was used: automated exposure control, adjustment of mA and/or kV according to patient size. COMPARISON: [facility], CT, CT HEAD/BRAIN WO CON, 09/10/2021, 10:26. FINDINGS: Image quality: Excellent. CSF spaces: Basal cisterns are patent. No extra-axial fluid collections. Ventricles are normal in size and shape. Brain: No midline shift. No intracranial masses or hemorrhage. No area of hypodensity in a large vascular distribution to suggest acute infarction. Periventricular hypodensity consistent with chronic microvascular ischemic change. Age-related parenchymal loss. Skull and face: Calvarium and visualized facial bones are intact, without suspicious lesions. Nodule adjacent to the left nares measuring at 1.8 cm, (4/6). Sinuses: Visualized sinuses and mastoids are clear. IMPRESSION: No acute intracranial abnormality. Results called to Isha Mane at 4:45 p.m. This study fulfills neurological imaging criteria for inclusion or exclusion of acute stroke therapies based on available published neurological imaging guidelines. Dictated by: Beto Kang M.D. on 03/29/2022 at 16:36 Approved by: Beto Kang M.D. on 03/29/2022 at 16:46
--- NOTE | 2022-03-29 | DI.CT.S_ITS ---
PROCEDURE: CT ANGIO HEAD AND NECK INDICATIONS: CODE STROKE TECHNIQUE: After the administration of intravenous contrast, 1 mm thick sections acquired from the aortic arch through the Elim Ira of Ward. Post-contrast 4.5 mm thick sections then re-acquired from the foramen magnum to the vertex. 3-dimensional cshreuy-dkywgyuis-cahkiutddm (MIP) and/or volume rendering reformats were acquired of the central intracranial vasculature and neck separately. For radiation dose reduction, the following was used: automated exposure control, adjustment of mA and/or kV according to patient size. COMPARISON: None. FINDINGS: Image quality: Excellent. BRAIN: CSF spaces: Ventricles are normal in size and shape. Basal cisterns are patent. No extra-axial fluid collections. Brain: No midline shift. No intracranial bleeds or masses. Oliveira-white matter interface appears intact. Skull and face: Calvarium and facial bones appear intact, without suspicious lesions. Orbits appear normal. Sinuses: Sinuses and mastoids are clear. HEAD CT ANGIOGRAPHY: Anterior circulation: Atheromatous calcifications are present within the cavernous portions of the internal carotid arteries bilaterally. There is less than 50% narrowing bilaterally.. The flow within the paired anterior cerebral arteries is normal and symmetric. The flow within the middle cerebral arteries is normal and symmetric. The anterior communicating artery is seen. No aneurysms are seen. Posterior circulation: Visualized portions of the vertebral arteries demonstrate normal caliber, and join to form a normal appearing basilar artery. There is an incidentally noted anatomic variant in the right vertebrobasilar system which extends from the posterior cavernous portion of the right internal carotid artery to the bifurcation of the bilateral posterior communicating arteries. No occlusion. This. No aneurysms are seen. NECK CT ANGIOGRAPHY: Carotid system: The great vessels demonstrate a conventional anatomy as they arise from the aortic arch. The origins of the common carotid arteries appear patent. The common carotid arteries demonstrate normal caliber and courses. There is moderate luminal narrowing at the origin of the right internal carotid artery (greater than 50%). Atheromatous calcification is present at the left carotid bulb with less than 50% luminal narrowing. The internal carotid arteries demonstrate normal calibers and courses. Posterior circulation: The origins of the vertebral arteries both appear widely patent. The more superior extracranial portions of both vertebral arteries also demonstrate normal courses and calibers. They join to form a normal appearing basilar artery. Soft tissues: Visualized neck soft tissues demonstrate no suspicious abnormalities. Subcutaneous emphysema is present around the right Port-A-Cath. Bones: No suspicious bony lesions. Visualized cervical spine appears normally aligned. IMPRESSION: 1. Atheromatous calcification at the bilateral cavernous internal carotid arteries with less than 50% narrowing. 2. Greater than 50% stenosis at the origin of the right internal carotid artery. 3. Less than 50% stenosis at the origin of the left internal carotid artery. 4. Vascular anatomic variant within the right posterior circulation suggesting the presence of a primitive lateral basilovertebral anastomosis. 5. No stenosis, occlusion, or aneurysm. Any quantitative measurements of stenosis were performed using NASCET criteria. Dictated by: Jessi Stephen M.D. on 03/29/2022 at 16:58 Approved by: Jessi Stephen M.D. on 03/29/2022 at 17:13
--- NOTE | 2022-03-29 | DI.RAD.S_ITS ---
PROCEDURE: XR CHEST 1V INDICATIONS: GIRISH-CATH TECHNIQUE: One view of the chest was acquired. COMPARISON: [facility], , XR CHEST 1V, 03/29/2022, 15:59. FINDINGS: Single fluoroscopic view of the chest demonstrates a Port-A-Cath catheter with the tip of the catheter in the SVC. IMPRESSION: Port-A-Cath catheter with tip in the SVC. Dictated by: Zi Jarrell M.D. on 03/30/2022 at 8:35 Approved by: Zi Jarrell M.D. on 03/30/2022 at 8:37
[2022-03-29] MEDS: LACTATED RINGERS 1,000 ML 100 ML IV (14:07)
--- NOTE | 2022-03-29 14:19 | PM.HP.1 ---
History of Present Illness History of Present Illness Date Patient Seen: 03/29/22 Time Patient Seen: 14:19 Chief complaint: Port-A-Cath Insertion Narrative: 72M with rectal cancer here for port a cath insertion. He had a prior chronic LEFT PICC line for chemotherapy secondary to head and neck cancer. Patient History Medical History Crushing injury of distal finger, subsequent encounter (09/03/15) Dysphagia (03/22/17) Hx of tongue cancer (2018) Hypothyroid Malignant neoplasm of head and neck (03/26/15) Rectal cancer Surgical History History of radical neck dissection Family & Social History Family History Father Age: 92 Hx of CABG Mother Age: 90 Pacemaker Social History: household members spouse Tobacco & Substance use: Tobacco type cigarettes Smoking Status Current every day smoker alcohol intake never alcohol intake frequency 0-2 drinks per day Substance Use Type does not use Meds Home Medications and Allergies Home Medications Medication Instructions Recorded Confirmed Type levothyroxine 100 mcg tablet 100 mcg PO DAILY #90 tabs 01/16/22 03/29/22 Rx Allergies Allergy/AdvReac Type Severity Reaction Status Date / Time No Known Drug Allergies Allergy Verified 03/29/22 13:39 Exam Vital Signs (past 8 hours): - 03/29/22 13:49 Temperature 97.7 F Pulse Rate 80 Respiratory Rate 16 Blood Pressure 145/94 H Pulse Oximetry 100 Oxygen Delivery Method Room Air Oxygen Delivery Method Room Air Narrative Exam Narrative: Gen-Adult man alert and oriented Neck-Supple without lymphadenopathy Chest-Non labored resp Assessment & Plan Assessment and plan (1) Adenocarcinoma of rectum: Status: Acute Assessment & Plan narrative: 72M with rectal cancer here for port a cath placement. Overview of the operation was discussed. Operative risks including bleeding, infection, mechanical failure, pneumothorax embolism were discussed. Questions have been answered and he is in agreement with this plan. Time Spent With Patient Critical Care time: I spent a total of [] minutes of critical care time on this patient's care today; this time is exclusive of procedural time.
[2022-03-29] MEDS: CEFAZOLIN 2 GM/100 ML PREMIX 100 ML IV (14:45)
--- NOTE | 2022-03-29 15:05 | SUR.OPER ---
Supine on padded OR bed, head on pillow, arms padded and tucked at sides, legs uncrossed, safety belt at thigh, tape over blanket over lower legs .
[2022-03-29] MEDS: BUPIVACAINE 0.5% W/ EPI (PF) 30 ML VIAL INJ (15:23)
[2022-03-29] MEDS: HEPARIN 5,000 UNIT, SODIUM CHLORIDE 0.9% 50 ML IV (15:23)
--- NOTE | 2022-03-29 15:35 | P.OP_ITS ---
Operative Date/Time/Diagnoses Date of procedure: 03/29/22 Time of procedure: 15:35 Pre-op diagnosis: Rectal cancer Post-op diagnosis: same Procedure & Clinicians Procedure: Port-A-Cath placement with ultrasound guidance Same procedure as scheduled: Yes Indications: Rectal cancer with need for long-term venous access Surgeon: aFraz Amado Click Yes if Unassisted: Yes Anesthesia Type: General Operative Notes Findings: Tip of the catheter within the SVC on fluoroscopy. Specimen(s): none sent Estimated Blood Loss (mL): 10 Procedure in detail: Patient was brought to the operating room placed supine on table. Bilateral lower extremity compressive devices were applied. General anesthesia was ind uced and he was intubated with an LMA. He was then prepped and draped in usual sterile fashion. Time-out was performed ensure the correct patient procedure necessary equipment within the operating room. He received 2 g of Ancef prior to incision. Under ultrasound guidance the right internal jugular vein was accessed under direct visualization. The guidewire was then threaded through the needle. Its placement was then confirmed using fluoroscopy. The dilator was then placed over the guidewire. The catheter was then inserted through the sheath. Placement was again confirmed with fluoroscopy. A subcutaneous pocket was made in the right chest wall. The tunneler device was used to move the catheter from the neck to the chest pocket. The port was attached after it was primed with heparined saline. The port was tested to ensure that it flushed easily and had good blood return. The port was then secured to the underlying fascia using interupted 0 Prolene suture. Hemostasis was achieved. The wound was irrigated with sterile saline. The subcutaneous tissues were reapproximated with the 3 0 Vicryl and then skin closed with 4-0 Monocryl. The skin was sealed with Dermabond. Patient tolerated procedure well. The sponge and instrument count at the end operation was correct. Patient emerged from general anesthesia was extubated and taken to the postoperative care unit in stable condition Complications: none Post-operative Condition: stable Disposition: same day surgery
[2022-03-29] MEDS: ASPIRIN 325 MG TABLET PO (16:24)
--- NOTE | 2022-03-29 16:24 | PM.CALLCOV.1 ---
Call Coverage Note Note Date of Patient Contact: 03/29/22 Time of Patient Contact: 16:24 Narrative of Care Provided: Upon arrival to the PACU following placement of a port a cath, patient reported partial loss of vision from the right eye. Vision with left eye closed is blurry can discern light and generally number of figures held up. No history of prior stroke or right eye problems. No eye pain. Left eye functioning normally. Last known normal of right eye was preop 1430. Hx of head and neck cancer, new diagnosis of rectal cancer, extensive and active tobacco use. Vitals within normal limits. Normal strength and sensation in all 4 extremities No facial asymmetry or tongue deviation Code stroke called for possible TIA/CVA. medicine physician present and evaluating. CTH and CTA neck being obtained. 325 mg ASA given Will discuss with Stroke [facility], doubtful TPA indicated without severe neurological deficit.
--- NOTE | 2022-03-29 16:50 | P.CONS_ITS ---
History of Present Illness Consult details Date Patient Seen: 03/29/22 Time Patient Seen: 16:05 Chief complaint: Port-A-Cath Insertion Narrative: Mr. 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 His last known well was 2:30pm before undergoing surgery for a port placement on the right chest. In recover in the PACU when he woke up he noted that he had blurry vision. He noted that in all ramirez of his right eye only he had blurry vision, he could discern light and still fingers generally, but had difficulty with number of fingers. His left eye vision was unchanged from baseline. He had no speech, swallowing difficulties. No headache. No lower extremity weakness. No chest pain or shortness of breath. In the PACU workup was done, vitals notable for afebrile, bp 142/90, hr 68, o2 sats 100% on room air. CODE stroke was called. Blood glucose 94. NIH 0. CT head with no acute process noted. CTA head/neck showed.... He was given 325mg aspirin. Stroke center was called, Dr. March evaluated CT head and noted no acute process Meds Home Medications and Allergies Home Medications Medication Instructions Recorded Confirmed Type levothyroxine 100 mcg tablet 100 mcg PO DAILY #90 tabs 01/16/22 03/29/22 Rx acetaminophen 325 mg capsule 650 mg PO QID PRN pain #60 caps 03/29/22 Rx (Tylenol) Allergies Allergy/AdvReac Type Severity Reaction Status Date / Time No Known Drug Allergies Allergy Verified 03/29/22 13:39 Review of Systems Review of Systems Narrative: 14 systems reviewed and negative aside from what is noted in HPI Exam Vital Signs (past 8 hours): - 03/29/22 13:49 03/29/22 15:34 03/29/22 15:40 Temperature 97.7 F 97.6 F Pulse Rate 80 73 68 Respiratory Rate 16 16 15 Blood Pressure 145/94 H 120/71 117/73 Pulse Oximetry 100 95 99 Oxygen Delivery Method Room Air Room Air Room Air 03/29/22 15:50 03/29/22 15:45 Temperature Pulse Rate 69 67 Respiratory Rate 18 14 Blood Pressure 125/71 136/70 Pulse Oximetry 98 100 Oxygen Delivery Method Room Air Room Air Oxygen Delivery Method Room Air Narrative Exam Narrative: GEN: no acute distress HEENT: moist mucous membranes, PERRL NECK: trachea midline, no JVD PULM: clear bilaterally, no wheezes, rhonchi, rales CV: regular rate and rhythm, no murmurs CHEST: right sided port placement, clean and bandaged ABD: soft, nontender, nondistended, no organomegaly EXT: warm and well perfused with no edema SKIN: scattered bruises NEURO: awake, alert and oriented x4, upper and lower extremity strength 5/5, extraocular movements intact, intact visual ramirez, decreased vision with blurring and inability to distinguish number of fingers in right eye in all ramirez, intact left eye vision in all ramirez, no upper or lower extremity drift noted, Objective Labs Result Diagrams: 03/29/22 16:10 03/29/22 16:10 [facility] Medical History Crushing injury of distal finger, subsequent encounter (09/03/15) Dysphagia (03/22/17) Hx of tongue cancer (2018) Hypothyroid Malignant neoplasm of head and neck (03/26/15) Rectal cancer Surgical History History of radical neck dissection Family History Father Age: 92 Hx of CABG Mother Age: 90 Pacemaker Social History household members: spouse Tobacco & Substance Use Smoking Status: Current every day smoker alcohol intake: never Assessment & Plan Assessment & Plan narrative: 1. Right eye vision loss -suspect secondary to stroke vs retinal artery occlusion -NIH initially of 0 -vision loss noted in right eye only, with still discernability of light, and general blurriness -CT head with no acute process -CTA head/neck showed greater than 50% stenosis of R ICA, and less than 50% of L ICA -given aspirin 325mg -order for aspirin, statin -check NIH q4h -check a1c, lipids -permissive hypertension for now, hold any blood pressure medications -ordered for MRI/ECHO -ordered for PT/OT 2. Stage IV head and neck cancer -s/p port placement on 03/29 3. Rectal cancer -has had intermitted rectal bleeding chronically -monitor for further bleeding 4. Hypothyroidism -continue synthroid CODE: Proxy: Charles Sun, son I have utilized all available resources to reconcile the patient's home medications. Time Spent With Patient Critical Care time: I spent a total of [] minutes of critical care time on this patient's care today; this time is exclusive of procedural time.
[2022-03-29 17:15] LABS: Add Manual Diff / Slide Review NO; Basophils Absolute Auto 100 /uL (0-100); Basophils Percent Auto 0.7 % (0-2); Eosinophils Absolute Auto 300 /uL (0-450); Eosinophils Percent Auto 3.4 % (2-4); Hematocrit 39.6 % (41-53); Hemoglobin 13.1 g/dL (13.5-17.5); INR 1.1 (0.9-1.3); Lymphocytes Absolute Auto 1100 /uL (1100-4500); Lymphocytes Percent Auto 13.1 % (25-40); Mean Corpuscular HGB Conc 33.1 % (30-36); Mean Corpuscular Hemoglobin 25.7 PG (26-34); Mean Corpuscular Volume 77.6 fL (80-100); Monocytes Absolute Auto 300 /uL (0-900); Monocytes Percent Auto 3.5 % (3-14); Neutrophils Absolute Auto 6400 /uL (1500-7000); Neutrophils Percent Auto 79.3 % (50-75); Platelet Count 271 X10^3/uL (150-400); Red Blood Cell Count 5.11 X10^6/uL (4.5-5.9); Red Cell Distribution Width 16.2 % (11.6-14.8)
[2022-03-29 17:18] LABS: PTT Partial Thromboplastin Tim 36 SECONDS (26-36)
--- NOTE | 2022-03-29 17:21 | DI.MRI.S_ITS ---
PROCEDURE: MR HEAD/BRAIN WO CON INDICATIONS: stroke? TECHNIQUE: Non-contrast axial T1 spin echo, axial T2 fast spin echo, sagittal and axial FLAIR, coronal T2 fast spin echo, axial gradient echo, axial diffusion and ADC through the brain. COMPARISON: [facility], CT, HEAD WITH CONTRAST, 11/01/2016, 15:58. [facility], CT, CT STROKE, 03/29/2022, 16:09. [facility], CT, CT ANGIO HEAD AND NECK, 03/29/2022, 16:09. FINDINGS: Image quality: Excellent. CSF spaces: Ventricles appear symmetric in size and shape. Basal cisterns are patent. No extra-axial fluid collections. Brain: No intracranial bleeds or mass effects. There is cerebral volume loss for age. There are periventricular and deep white matter chronic small vessel ischemic changes. Brainstem appears normal. Diffusion-weighted images show no acute ischemic insults. No chronic ischemic insults. Normal intravascular flow voids are present. Skull and face: Calvarial bone marrow is normal in signal. Orbits are normal. There is a 1.4 x 1.5 cm relatively T1 hypointense and T2 hyperintense mass adjacent to the base of the left nose. It has a central focus of T2 hypointensity. This is been present since 2017 at which time it measured 1.1 x 1.2 cm. Sinuses: Sinuses and mastoids are clear. IMPRESSION: 1. No acute intracranial process. No acute ischemia. 2. Mild atrophy and chronic microvascular ischemic changes. 3. Left facial soft tissue mass along the left nasal nares is again noted with slight interval growth compared to 2017. Etiology is indeterminate on the basis of this exam and as previously noted, malignancy cannot be excluded although noting slow interval growth since 2017 this is felt to be less likely although not completely excluded. Dermatology consult is recommended. Dictated by: Elizabeth Ramírez M.D. on 03/29/2022 at 18:21 Approved by: Elizabeth Ramírez M.D. on 03/29/2022 at 18:27
[2022-03-29 17:24] LABS: Alanine Aminotransferase 19 IU/L (<50); Alkaline Phosphatase 92 U/L (38-126); Aspartate Aminotransferase 39 IU/L (17-59); BUN Creatinine Ratio 16.2 (6-22); Bilirubin Total 0.5 mg/dL (0.2-1.3); Blood Urea Nitrogen 18 mg/dL (9-20); Carbon Dioxide 23 mmol/L (22-32); Chloride 105 mmol/L (98-107); Creatine Kinase 56 U/L (55-170); Estimated Glomerular Filt Rate > 60 mL/min (>60); Glucose 97 mg/dL (80-110); Magnesium 1.9 mg/dL (1.6-2.3); Potassium 4.3 mmol/L (3.4-5.1); Sodium 137 mmol/L (137-145); Total Protein 7.7 g/dL (6.3-8.2)
--- NOTE | 2022-03-29 17:26 | SUR.PHASEI ---
1549 Dr Saucedo at bedside to assess pt. Dr Amado called to bedside at 1555 and assessed pt. Pt A/O/x4, pt reports not being able to see out of right eye since he woke up from surgery, No other deficits. Code stroke called at 1601.
--- NOTE | 2022-03-29 17:34 | SUR.PHASEI ---
1646 Dr Amado at bedside and explained to pt that he was going to be staying in the hospital overnight for observation. No changes in pt's condition.
--- NOTE | 2022-03-29 17:35 | SUR.PHASEI ---
1608 pt blood sugar 94
[2022-03-29 17:36] LABS: Troponin I < 0.012 ng/mL (0.01-0.034)
[2022-03-29] MEDS: ATORVASTATIN 20 MG TABLET 80 MG PO (21:09)
[2022-03-30 04:26] VITALS: BP 98/63; PULSE 54; RESP 17; TEMP 36.2; O2SAT 100
[2022-03-30 05:11] LABS: Add Manual Diff / Slide Review NO; Basophils Absolute Auto 0 /uL (0-100); Basophils Percent Auto 0.2 % (0-2); Eosinophils Absolute Auto 0 /uL (0-450); Eosinophils Percent Auto 0.1 % (2-4); Hematocrit 38.9 % (41-53); Hemoglobin 13.1 g/dL (13.5-17.5); Lymphocytes Absolute Auto 900 /uL (1100-4500); Lymphocytes Percent Auto 11.1 % (25-40); Mean Corpuscular HGB Conc 33.6 % (30-36); Mean Corpuscular Hemoglobin 25.8 PG (26-34); Mean Corpuscular Volume 76.8 fL (80-100); Monocytes Absolute Auto 300 /uL (0-900); Monocytes Percent Auto 3.3 % (3-14); Neutrophils Absolute Auto 6600 /uL (1500-7000); Neutrophils Percent Auto 85.3 % (50-75); Platelet Count 271 X10^3/uL (150-400); Red Blood Cell Count 5.07 X10^6/uL (4.5-5.9); Red Cell Distribution Width 16.2 % (11.6-14.8); White Blood Cell Count 7.7 X10^3/uL (4.5-11.0)
[2022-03-30 05:19] LABS: BUN Creatinine Ratio 19.4 (6-22); Blood Urea Nitrogen 20 mg/dL (9-20); Calcium 8.9 mg/dL (8.4-10.2); Carbon Dioxide 19 mmol/L (22-32); Chloride 106 mmol/L (98-107); Cholesterol 206 mg/dL (140-199); Estimated Glomerular Filt Rate > 60 mL/min (>60); Glucose 121 mg/dL (80-110); HDL Cholesterol 25 mg/dL (40-60); HEMOLYSIS < 15 (0-50); LDL Cholesterol Calculated 159 mg/dL (<100); Potassium 4.4 mmol/L (3.4-5.1); Sodium 135 mmol/L (137-145); Triglycerides 109 mg/dL (35-150)
[2022-03-30 05:28] LABS: Hemoglobin A1C% w Est Avg Glu 5.8 % (4.0-6.0)
[2022-03-30] MEDS: LEVOTHYROXINE 100 MCG TABLET PO (05:43)
--- NOTE | 2022-03-30 07:03 | PC.NURSE ---
Patient is A & O x 4, states he continues to have visual loss in the right eye which is improving. Patient states he can see straight ahead and to the right but not to the left. NIHSS = 1 and 1.
--- NOTE | 2022-03-30 07:12 | DI.ECHO.S_ITS ---
Interpretation Summary 1) Upper normal left ventricular thickness with normal size and mildly reduced systolic function (EF 45-50%). 2) Basal to mid inferior wall is severely hypokinetic. Bsal to inferolateral and mid to distal anteroseptal are hypokinetic. 3) Normal right ventricular size and function. 4) No significant valvular abnormalities. 5) Doppler interrogation and injection of saline echo contrast shows no evidence for an interatrial shunt. 6) No prior Echo available for comparison. Procedure: A two-dimensional transthoracic echocardiogram with color flow and Doppler was performed. A saline contrast injection was performed to assess for cardiac shunting. The patient was in sinus bradycardia with heart rates between 52-60 bpm during the exam. Left Ventricle: Left ventricular wall thickness is at the upper limits of normal. The left ventricle is normal in size. Left ventricular systolic function is mildly reduced. The ejection fraction is estimated to be 45-50%. Basal to mid inferior wall is severely hypokinetic. Bsal to inferolateral and mid to distal anteroseptal are hypokinetic. Diastolic parameters suggest a relaxation abnormality of the left ventricle, consistent with probable normal filling pressures. Right Ventricle: The right ventricle is normal in size and function. Atria: The left atrium is mildly dilated. The right atrium is mildly dilated. Doppler interrogation and injection of saline echo contrast shows no evidence for an interatrial shunt. Mitral Valve: The mitral valve is normal in structure and function. There is trace mitral regurgitation. Aortic Valve: The aortic valve is normal in structure and function. There is no aortic valve stenosis. No aortic regurgitation is present. Tricuspid Valve: The tricuspid valve is normal in structure and function. There is a trace or physiologic amount of tricuspid regurgitation. Pulmonic Valve: The pulmonic valve leaflets are thin and pliable; valve motion is normal. There is a trace or physiologic amount of pulmonic regurgitation. Great Vessels: The aortic root is normal size. The dimensions of the ascending aorta are normal. The IVC is of normal diameter and collapses greater than 50% with a sniff. This suggests a low right atrial pressure of 3 mm Hg. Pericardium/ Pleura There is no pericardial effusion. There is no pleural effusion. MMode/2D Measurements & Calculations LVIDd: 4.9 cm LVOT diam: 2.0 cm LVIDs: 3.6 cm Ao root diam: 3.0 cm FS: 26.5 % asc Aorta Diam: 3.5 cm EPSS: 1.0 cm IVSd: 1.1 cm LVPWd: 0.90 cm LV kimble. diameter/BSA (cm/m^2): 2.5 LV sys. diameter/BSA (cm/m^2): 1.9 LA dimension: 3.8 cm RA long axis: 5.2 cm LA A4 area: 17.5 cm2 RA area: 18.2 cm2 RA vol: 54.7 ml RA : 28.4 ml/m2 LVLs ap4: 7.3 cm LVLd ap2: 8.0 cm LVLs ap2: 6.4 cm TAPSE_phl: 2.5 cm Doppler Measurements & Calculations Ao V2 max: 123.0 cm/sec LVOT Max Kermit: 92.0 cm/sec Ao V2 mean: 92.7 cm/sec LV V1 max P.4 mmHg Ao max P.0 mmHg LV V1 VTI: 21.8 cm Ao mean P.0 mmHg LEATHA(I,D): 2.2 cm2 Ao V2 VTI: 31.5 cm LEATHA(V,D): 2.3 cm2 sev ratio: 0.69 LEATHA indexed to BSA (cm^2/m^2): 1.1 MV E max kermit: 58.3 cm/sec TR max kermit: 177.0 cm/sec MV A max kermit: 112.0 cm/sec TR max P.1 mmHg MV E/A: 0.52 PA V2 max: 70.7 cm/sec Med Peak E' Kermit: 6.7 cm/sec PA V2 mean: 46.0 cm/sec E/E' med: 8.7 PA mean P.0 mmHg Lat Peak E' Kermit: 10.0 cm/sec E/E' lat: 5.9 E/e' average: 7.3 MV dec time: 0.38 sec MVA(VTI): 2.3 cm2 MV V2 mean: 54.8 cm/sec SV(LVOT): 68.5 ml MV mean P.0 mmHg MV V2 VTI: 30.3 cm AV VR_phl: 0.75 MV P1/2t-pr_phl: 112.0 msec LEATHA(VTI)/BSA_phl: 1.1 Reading Physician:09:48 AM
[2022-03-30 08:00] VITALS: BP 120/61; PULSE 61; RESP 16; TEMP 35.7; O2SAT 99
[2022-03-30 09:00] VITALS: O2SAT 99
[2022-03-30] MEDS: ASPIRIN EC 81 MG TABLET PO (09:53)
[2022-03-30] MEDS: ENOXAPARIN 40 MG/0.4 ML SYRINGE SUBCUT (09:54)
--- NOTE | 2022-03-30 10:25 | OT.IP.EVAL ---
Current Diagnoses Malignant neoplasm of rectum (03/29/22) Venous insufficiency (chronic) (peripheral) (03/29/22) Surgery Performed Operation Date: 03/29/22 14:45 Actual Procedures p Port-A-Cath Insertion(Right) - Faraz Amado MD Past Medical History (Last Reviewed 03/29/22 @ 16:50 by Binh Eugene MD) Crushing injury of distal finger, subsequent encounter (09/03/15) Dysphagia (03/22/17) Hx of tongue cancer (2018) Hypothyroid Malignant neoplasm of head and neck (03/26/15) Rectal cancer Surgical History (Last Reviewed 03/29/22 @ 16:50 by Binh Eugene MD) History of radical neck dissection Occupational Therapy Inpatient Evaluation/Re-Eval M1 PT/OT-IP Prior Functional Status Start: 03/30/22 13:13 Freq: NEEDED Status: Active Protocol: Document 03/30/22 10:25 [facility] (Rec: 03/30/22 13:31 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 Social History Household Members spouse,children Living Arrangements House Number of Floors (Floors) Two Floors Number of Stairs To Enter/Railing? 2 small step to enter the house M2 OT-IP Current Condition Start: 03/30/22 13:13 Freq: Status: Active Protocol: Document 03/30/22 10:25 [facility] (Rec: 03/30/22 13:31 [facility] [id number]) Occupational Therapy Current Condition Current Condition Evaluation Date 03/30/22 Treatment Diagnosis right eye retinal artery embolism Diagnosis Onset Date 03/29/22 M3 OT- IP Subjective and Pain Start: 03/30/22 13:13 Freq: Status: Active Protocol: Document 03/30/22 10:25 [facility] (Rec: 03/30/22 13:31 [facility] [id number]) OT- Subjective Occupational Therapy Visit Type Type Initial Evaluation Visit Start Time 10:25 Visit Stop Time 10:58 Total Visit Minutes 33 Occupational Therapy Visit Comments Patient Comments Pt agreed to work with OT. Patient/Caregiver Goals TO go home. OT Pain Assessment Pain When Pain Assessed At Rest Pain Present Pain Present Denied Pain M4 OT- IP ADL's Start: 03/30/22 13:13 Freq: Status: Active Protocol: Document 03/30/22 10:25 [facility] (Rec: 03/30/22 13:31 [facility] [id number]) OT SGP-Papc-Facpzso Comments OT Self-Feeding Comments Pt states has no issues with his meals. OT ADL-Grooming General Evaluation Grooming Ability Independent OT ADL-Oral Care General Eval Oral Care Ability Independent OT ADL-Dressing General Eval Upper Body Dressing Ability Independent OT ADL-Toileting General Evaluation Toileting Ability Independent OT ADL-Bathing Comments OT Bathing Comments NOt performed. M5 OT- IP IADL's Start: 03/30/22 13:13 Freq: Status: Active Protocol: Document 03/30/22 10:25 [facility] (Rec: 03/30/22 13:31 [facility] [id number]) OT-Instrumental Activities of Daily Living Home Safety Awareness Awareness of Need for Assistance at Home Good Awareness Ability to Problem Solve Emergency Able to Problem Solve Situations Medication Management Medication Management Comments Pt to be careful if taking medication due to his right eye decreased vision inferior medial field. Meal Preparation Meal Preparation Comments Spouse to assst as needed. 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 Driving Driving Comments Pt states alexsandra not drive right away. M6 OT- IP Functional Cognition Start: 03/30/22 13:13 Freq: Status: Active Protocol: Document 03/30/22 10:25 [facility] (Rec: 03/30/22 13:31 [facility] [id number]) Cognitive Factors Limiting Selfcare Function Cognitive Ability Level of Alertness Alert Patient Orientation Name,Age,Birthday,Month,Date, Year,Day of Week,Place, Situation Attention Span Ability Capable of Focused Attention, Capable of Sustained Attention Ability to Follow Commands Able to Follow Multi-Step Commands Memory Description No Deficits Noted Safety Awareness No Deficits Noted Problem Solving Ability No deficits Noted Executive Function Ability No Deficits Noted Cognitive Comments Cognitive Assessment Comments Pt scored 60 seconds on [place] Making Part B whicc implies perfect score and therefore normal for visual attention, speed of processing, task switching, executive functioning, and mental flexibility. Pt states will probably not go back to work until Sunday. OT- Vision and Hearing OT- Hearing Assessment OT- Hearing Assessment WFL OT- Vision Assessment Visual Attentiveness WFL Occular Pursuits WFL Visual Convergence WFL Vision Assessment Comments Pt not able to see for inferior medial of right eye. M7 OT- IP Mobility and Balance Start: 03/30/22 13:13 Freq: Status: Active Protocol: Document 03/30/22 10:25 [facility] (Rec: 03/30/22 13:31 [facility] [id number]) OT-Transfer Assessment Sit to and From Stand Sit to and from Stand Independent Transfers Transfer Ability Independent Technique Transfer Destination Chair Comments Mobility Comments Pt completely independent in the room and able to do a step independently and safely. OT- Gait Assessment Comments Gait Ability Comments Independent with no devices needed. OT- Balance Assessment Sitting Balance and Reactions Static Sitting Balance Ability Normal Dynamic Sitting Balance Ability Normal Standing Balance and Reactions Static Standing Balance Ability Normal Dynamic Standing Balance Ability Good M8 OT- IP Objective Assessments Start: 03/30/22 13:13 Freq: Status: Active Protocol: Document 03/30/22 10:25 [facility] (Rec: 03/30/22 13:31 [facility] [id number]) OT Gross Range of Motion Upper Extremity Range of Motion Assessment Right Impaired OT Strength Upper Extremity Strength Assessment Within Functional Limits OT- Coordination Assessment Upper Extremity Finger to Nose Test Within Functional Limits Finger Tapping Test Within Functional Limits OT-Muscle Tone Assessment Muscle Tone WNL Yes OT Sensation Assessment Comments Summary Comments Intact for light touch M9 OT- IP Assessment and Plan Start: 03/30/22 13:13 Freq: Status: Active Protocol: Document 03/30/22 10:25 [facility] (Rec: 03/30/22 13:31 [facility] [id number]) OT Summary Assessment and Plan Potential Rehabilitation Potential Excellent Analytic Complexity at Evaluation Low Summary Progress Towards Goals Safe For Discharge Assessment Summary Pt low complexity and main barriers are right eye inferior medial visual field impaired. Pt states to see an customer engineering specialist. Pt otherwise independent with ADL and mobility needs and scored 60 seconds on [place] Making Part B which implies normal for visual attention, speed of processing, mental flexibility , executive functioning and task switching. Discharge Recommendations OT Discharge Recommendations Home with Assistance Transportation Needs at Discharge Private Vehicle
--- NOTE | 2022-03-30 11:38 | PM.DS.1 ---
History of Present Illness History of Present Illness Chief complaint: Port-A-Cath Insertion Narrative: 72M current smoker with H stage IV head and neck cancer s/p resection, radiation and history of rectal cancer with chronic intermittent bleeding who is consulted as a code stroke after surgery. His last known well was 2:30pm before undergoing surgery for a port placement on the right chest. In recover in the PACU when he woke up he noted that he had blurry vision. He noted that in all ramirez of his right eye only he had blurry vision, he could discern light and still fingers generally, but had difficulty with number of fingers. His left eye vision was unchanged from baseline. He had no speech, swallowing difficulties. No headache. No lower extremity weakness. No chest pain or shortness of breath. In the PACU workup was done, vitals notable for afebrile, bp 142/90, hr 68, o2 sats 100% on room air. CODE stroke was called. Blood glucose 94. NIH 0. CT head with no acute process noted. CTA head/neck showed.... He was given 325mg aspirin. Stroke center was called, Dr. March evaluated CT head and noted no acute process Discharge Providers Provider Date of admission: 03/29/22 17:23 Discharge Date: 03/30/22 Primary care physician: Chase Perez MD Consults: 03/29/22 17:23 Consult to Occupational Therapy Evaluate & Treat Comment: Physician Instructions: Evaluate and treat Consult to Physical Therapy Evaluate & Treat Comment: Physician Instructions: Evaluate and Treat Discharge provider: Saul Ryder MD Summary Hospital Course Discharge Diagnosis: 1. Acute CVA, right eye retinal artery embolism 2. Hyperlipidemia 3. Cigarette nicotine dependency 4. Head and neck cancer 5. Rectal carcinoma 6. Status post Port-A-Cath placement for chemo on 03/29/2022 Hospital Course: As noted patient developed acute right eye vision loss while in PACU after Port-A-Cath placement. Code stroke was called. He was provided aspirin. His CTA shows moderate plaque in bilateral carotid arteries. His brain MRI shows diffuse small-vessel disease. Echocardiogram was performed prior to discharge and report pending. He will follow up with PCP on echo findings. His telemetry did not show any AFib episodes. He is provided counseling and strongly advised to quit smoking with aid of nicotine patch. Additionally he is started on high-dose statin therapy. He will also be taking aspirin 81 mg q.d. and monitor for signs of GI bleed as he does have current active rectal cancer. At time of discharge his right eye vision loss is still present though clearly improving where he has a blind spot remaining in the inferior medial visual field. Status at Discharge Cognitive/behavioral status at discharge: oriented Functional status at discharge: independent ambulation Overall status at discharge: patient is progressing back to baseline Exam Vital Signs (past 8 hours): - 03/30/22 04:26 03/30/22 08:00 03/30/22 09:00 Temperature 97.1 F L 96.2 F L Pulse Rate 54 L 61 Respiratory Rate 17 16 Blood Pressure 98/63 120/61 Pulse Oximetry 100 99 99 Oxygen Delivery Method Room Air Oxygen Flow Rate 0 0 Oxygen Delivery Method Room Air Oxygen Flow Rate 0 Narrative Exam Narrative: General: Alert pleasant and cooperative male no distress Neuro: Normal affect, speech fluent without aphasia, no facial droop, EOMI, visual ramirez grossly normal with finger counting, normal strength in all 4 extremities, normal balance and coordination Objective Labs Result Diagrams: 03/30/22 04:24 03/30/22 04:24 Labs: Laboratory Results - last 24 hr 03/29/22 03/29/22 03/29/22 16:10 16:10 16:10 WBC 8.0 RBC 5.11 Hgb 13.1 L Hct 39.6 L MCV 77.6 L MCH 25.7 L MCHC 33.1 RDW 16.2 H Plt Count 271 Neut % (Auto) 79.3 H Lymph % (Auto) 13.1 L [place] % (Auto) 3.5 Eos % (Auto) 3.4 Baso % (Auto) 0.7 Neut # (Auto) 6400 Lymph # (Auto) 1100 [place] # (Auto) 300 Eos # (Auto) 300 Baso # (Auto) 100 PT 13.0 H INR 1.1 APTT 36 Sodium 137 Potassium 4.3 Chloride 105 Carbon Dioxide 23 BUN 18 Creatinine 1.11 Estimated GFR > 60 BUN/Creatinine Ratio 16.2 Glucose 97 Hemoglobin A1c Calcium 9.0 Magnesium 1.9 Total Bilirubin 0.5 AST 39 ALT 19 Alkaline Phosphatase 92 Total Creatine Kinase 56 CK-MB (CK-2) TNP CK-MB (CK-2) Rel Index TNP Troponin I < 0.012 Total Protein 7.7 Triglycerides Cholesterol LDL Cholesterol, Calc HDL Cholesterol 03/30/22 03/30/22 03/30/22 04:24 04:24 04:24 WBC 7.7 RBC 5.07 Hgb 13.1 L Hct 38.9 L MCV 76.8 L MCH 25.8 L MCHC 33.6 RDW 16.2 H Plt Count 271 Neut % (Auto) 85.3 H Lymph % (Auto) 11.1 L [place] % (Auto) 3.3 Eos % (Auto) 0.1 L Baso % (Auto) 0.2 Neut # (Auto) 6600 Lymph # (Auto) 900 L [place] # (Auto) 300 Eos # (Auto) 0 Baso # (Auto) 0 PT INR APTT Sodium 135 L Potassium 4.4 Chloride 106 Carbon Dioxide 19 L BUN 20 Creatinine 1.03 Estimated GFR > 60 BUN/Creatinine Ratio 19.4 Glucose 121 H Hemoglobin A1c 5.8 Calcium 8.9 Magnesium Total Bilirubin AST ALT Alkaline Phosphatase Total Creatine Kinase CK-MB (CK-2) CK-MB (CK-2) Rel Index Troponin I Total Protein Triglycerides 109 Cholesterol 206 H LDL Cholesterol, Calc 159 H HDL Cholesterol 25 L PFSH Medical History Crushing injury of distal finger, subsequent encounter (09/03/15) Dysphagia (03/22/17) Hx of tongue cancer (2018) Hypothyroid Malignant neoplasm of head and neck (03/26/15) Rectal cancer Surgical History History of radical neck dissection Family History Father Age: 92 Hx of CABG Mother Age: 90 Pacemaker Social History household members: spouse and children Smoking Status: Current every day smoker alcohol intake: never Discharge Plan Discharge Plan Patient Disposition: Home Provider Discharge Comment: Post-op instructions: No driving today Remove dressings in 48 hours then okay to shower Activity as tolerated You had a stroke after surgery affecting vision in the right eye. Probably a piece of plaque got loose and travelled downstream to your retinal artery. Your angiogram showed moderate plaque build-up in the carotid arteries. Your MRI showed disease in the small blood vessels of the brain. Heart monitoring on telemetry was normal. An echo was preformed and results are pending but will be forwarded to Dr. Perez to review with you. The best and most urgent thing for you to do to prevent another stroke is to quit smoking. Try the 21 mg nicotine patch to help you quit. Additionally, I have started you on 81 mg daily aspirin and atorvastatin for cholesterol reduction. Dr. Perez can provide 90 day mail order prescription for you. Monitor for signs of rectal bleeding. Avoid ibuprofen, naproxen or other NSAIDs if taking aspirin. Discharge orders & Medications Prescriptions: New acetaminophen [Tylenol] 325 mg capsule 650 mg PO QID PRN (Reason: pain) Qty: 60 0RF aspirin 81 mg Tablet,Delayed Release (Dr/Ec) 81 mg PO DAILY Qty: 1 0RF Rx Instructions: OTC atorvastatin 80 mg tablet 80 mg PO BEDTIME 30 Days Qty: 30 0RF Continued levothyroxine 100 mcg tablet 100 mcg PO DAILY Qty: 90 3RF Hold Instructions: Need follow up lab Follow up/Referrals: Chase Perez MD [Primary Care Provider] - 04/06/22 11:25 am (Appt:04/06 @ 11:[address] Mcdaniel (Dr Perez is unavailable) ) Faraz Amado MD [Physician] - (Follow-up as needed) Diet/Activity/Treatments Diet: Diet as Tolerated Skin/Wound/Dressing Care Report to your healthcare provider any signs of infection, such as:: chills, fever, increased pain, unusual drainage and unusual redness Visit Report/Discharge Packet Stand Alone Forms: Patient Portal/API, Stroke Signs & Symptoms Discharge Data Primary Care Provider: Chase Perez Attending Provider: Faraz Amado Quality VTE Deep Vein Thrombosis/Pulmonary Embolism Present on Admission: No
--- NOTE | 2022-03-30 12:51 | PC.NURSE ---
Pt is A&OX3, VSS, afebrile on RA. On telemetry he is NSR. He ambulates with SBA in room without any c/o dizziness and is evaluated by PT/OT. He has echo completed at bedside. NIHHS score is a 1, he reports some improvement of vision to R eye. PERRLA, EOMI and he is cleared for discharge home today with follow up appointment made with PCP. He verbalizes acknowledgement and understanding of site care of R chest port and new medications. He is escorted with all of his belongings to private vehicle with family member for discharge home at approximately 1145
--- NOTE | 2022-03-30 14:26 | PT-IP ANOTE ---
PT shanaal received and EMR reviewed. checked on pt and pt up and dressed and stated that he is going home and that he does not need PT. OT informed PT that pt did well and that OT was able to do stairs with pt as well.
[2022-03-31 16:41] LABS: Albumin 3.7 g/dL (3.5-5.0); Albumin Globulin Ratio 0.9 (1.0-2.8); HEMOLYSIS < 15 (0-50)
== END 2022-03-30 11:50 | disposition home or self-care (01) ==
LOC: OR 03-30 10:42 → AC 03-30 10:42
PROVIDERS: Admitting Provider Internal Medicine; PCP Student in an Organized Health Care Education/Training Program; Referring Provider Surgery; Visit Provider Surgery
PROC: (CPT 36561; principal; 2022-03-29 14:45)
DX: C78.5 Secondary malignant neoplasm of large intestine and rectum (principal); Z85.89 Personal history of malignant neoplasm of other organs and systems; I63.19 Cerebral infarction due to embolism of other precerebral artery; H53.8 Other visual disturbances; R29.702 NIHSS score 2; E78.5 Hyperlipidemia, unspecified; F17.210 Nicotine dependence, cigarettes, uncomplicated
CPT/HCPCS: 36561; 36415; 70450; 70496; 70498; 70551; 71045; 76000; 80048; 80053; 80061; 82550; 82962; 83036; 83735; 84484; 85025; 85610; 85730; 93005; 93306; 96372; 97165; G0378; J0690; J1100; J1644; J1650; J2405; J2704; J3010; Q9967

== ENCOUNTER → 2022-04-18 07:16 | Outpatient (CLI) | payer MEDICARE, OTHER, SELFPAY ==
[2022-03-30 10:23] VITALS: BMI 26.3
--- NOTE | 2022-04-20 19:24 | DI.NM.S_ITS ---
DATE OF SERVICE: 04/18/2022 PROCEDURE: Exercise perfusion study. INDICATION: Atherosclerotic vascular disease. RADIOPHARMACEUTICAL: 25.9 millicurie technetium-99m Myoview IV was injected at stress and 26.0 millicurie technetium-99m Myoview IV was injected at rest. CARDIAC STRESS: The patient walked on Julien protocol under the supervision of an attending staff. The patient walked on Julien protocol for 6 minutes and 43 seconds, achieved maximum heart rate of 133, which was 89 percent of target heart rate. Normal hemodynamic response. Resting blood pressure 140/80 mmHg. Peak blood pressure 180/90 mmHg. Achieved 7 METs of workload. MIGUEL positive 11 percent. Baseline rhythm sinus. During stress, no convincing ischemic changes seen. No significant arrhythmias. No chest pain. The patient felt fatigue and calf tightness in the calf muscles. RAW DATA: There is increased subdiaphragmatic activity. Hot spot near the inferior border of the heart. GATED STUDY: Resting LV ejection fraction 58 and stress LV ejection fraction 65 percent without any obvious wall motion abnormalities. Resting end-diastolic volume 118 mL. TID ratio 0.92, which is within normal limits. Lung/heart ratio 0.32, which is within normal limits. MYOCARDIAL PERFUSION SCAN: Stress supine, resting supine and stress prone images were compared to each other. Stress supine and resting supine images revealed moderate-size, moderately decreased perfusion of base to mid inferior wall, which got partially improved during stress prone images. However, in stress prone images, basal inferior wall defect remained. Mid inferior wall defect got improved. No reversibility seen. CONCLUSION: 1. No obvious reversible ischemia. 2. Base to mid inferior wall defect, which was seen during stress supine and resting supine images, got partially improved during stress prone images. Raw data revealed hot spot near the inferior border of the heart. Left ventricular function is preserved. No inferior wall motion abnormalities. Hence, most likely we are dealing with tissue attenuation artifact with some persistent tissue attenuation artifact. However, one cannot rule out the possibility of basal inferior wall myocardial infarction. Diminished exercise tolerance. Normal hemodynamic response. Overall, low-risk myocardial perfusion scan. Correlate clinically. Stephane Sun - Sherri doc#: [id number]/job#: [id number] dd: 04/20/2022 17:19:00 dt: 04/20/2022 18:49:00 DICTATING MD/COPIES TO: Radha Siddiqi MD COPIES MNE: ISAIAH;
== END ==
PROVIDERS: PCP Student in an Organized Health Care Education/Training Program; Referring Provider Internal Medicine; Visit Provider Internal Medicine
DX: I25.10 Atherosclerotic heart disease of native coronary artery without angina pectoris (principal)
CPT/HCPCS: 78452; 93016; 93017; 93018; A9502

== ENCOUNTER 2022-06-20 09:10 | Emergency (ER) | payer MEDICARE, OTHER, SELFPAY ==
[2022-03-30 10:23] VITALS: BMI 26.3
[2022-06-20] VITALS (13 sets, daily range): BP systolic 120–184; BP diastolic 74–101; PULSE 52–70; RESP 12–27; TEMP 36.2; O2SAT 98–100; BMI 23.5
--- NOTE | 2022-06-20 09:13 | DI.RAD.S_ITS ---
PROCEDURE: XR CHEST 1V INDICATIONS: SOB, cough, phlegm TECHNIQUE: One view of the chest was acquired. COMPARISON: [facility], CR, XR CHEST 1V, 03/29/2022, 16:25. [facility], CR, XR CHEST 1V, 03/29/2022, 15:59. FINDINGS: Surgical changes and devices: A right port catheter terminates in the proximal SVC. Lungs and pleura: No dense airspace disease. Possible right basal mild opacity. No pleural effusions. Mediastinum: Mediastinal contours appear normal. Heart size is normal. Bones and chest wall: No suspicious bony lesions. Overlying soft tissues appear unremarkable. IMPRESSION: Possible early airspace disease versus atelectasis in the right lower lung. Consider future imaging surveillance to assess for resolution. A right port catheter is in place terminating in the proximal SVC. Dictated by: Kike Brown M.D. on 06/20/2022 at 9:42 Approved by: Kike Brown M.D. on 06/20/2022 at 9:43
--- NOTE | 2022-06-20 09:14 | ED_ITS ---
HPI - General Adult General Chief complaint: Shortness of Breath/Dyspnea Stated complaint: hard time catching breath sent from Oncol. 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 He is had no fever or chills and vital signs were stable in the oncology office. Patient has had leukopenia of 2.6 with an absolute neutrophil count of 1400 and mild anemia which has been stable. 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 Patient had 1st cycle of neoadjuvant modified FOLFOX 6 on May 01 and presented to oncology yesterday for his 2nd cycle. Related Data Previous Rx's Medication Instructions Recorded levothyroxine 100 mcg tablet 100 mcg PO DAILY #90 tabs 01/16/22 aspirin 81 mg tablet,delayed 81 mg PO DAILY #1 tab 03/30/22 release atorvastatin 40 mg tablet 80 mg PO BEDTIME #180 tabs 04/06/22 fluorouracil 2.5 gram/50 mL See Rx Instructions .Route 04/10/22 intravenous solution .COMPLEX CHEMOTHERAPY #1 device lidocaine-prilocaine 2.5 %-2.5 % 1 applic topical PRN PRN 04/19/22 topical cream Port/Catheter Care #30 grams fluorouracil 2.5 gram/50 mL See Rx Instructions .Route 05/01/22 intravenous solution .COMPLEX CHEMOTHERAPY #1 device ondansetron 4 mg disintegrating 4 mg PO Q6H chemo nausea #60 tabs 05/01/22 tablet prochlorperazine maleate 10 mg 10 mg PO Q6H PRN nausea, 05/01/22 tablet (Compazine) chemotherapy #60 tabs mouthwashes 30 ml mucous membrane QID mouth 06/12/22 sores #320 ea pramoxine 1 % topical foam 1 applic WV QID rectal 06/12/22 pain/itching #30 grams ciprofloxacin HCl 0.3 % eye drops 2 drp EYE-RIGHT Q2H 14 days #5 mL 06/19/22 doxycycline hyclate 100 mg tablet 100 mg PO BID #20 tabs 06/20/22 Allergies Allergy/AdvReac Type Severity Reaction Status Date / Time No Known Drug Allergies Allergy Verified 06/20/22 09:20 Review of Systems Review of Systems Narrative: GENERAL: Denies chills, fatigue, malaise, fever, sweats. HEENT: Denies sinus pain, ear pain, sore throat, difficulty swallowing, dizziness. RESPIRATORY:see HPI CARDIOVASCULAR: Denies chest pain, palpitations, orthopnea, edema, GASTROINTESTINAL: Denies nausea, vomiting, abdominal pain, diarrhea, constipation, melena. : Denies dysuria, frequency, incontinence, hematuria, urinary retention. MUSCULOSKELETAL: denies weakness, joint pain, or bony pain SKIN: Denies rash, skin lesions, or other NEUROLOGIC: Denies weakness, headache, numbness, change in speech, confusion, seizures, incoordination. PSYCHIATRIC: No concerning psychosocial issues. 12 point review of systems is negative except for those stated above Patient History Medical History Coronary artery disease Crushing injury of distal finger, subsequent encounter (09/03/15) Dysphagia (03/22/17) Hx of tongue cancer (2018) Hypothyroid Malignant neoplasm of head and neck (03/26/15) Rectal cancer Right retinal artery branch occlusion Tobacco use disorder Vision loss Surgical History History of radical neck dissection Family History Father Age: 92 Hx of CABG Mother Age: 90 Pacemaker Social History household members: spouse and children Smoking Status: Current every day smoker alcohol intake: never Smoking Status: Current every day smoker tobacco type: cigarettes alcohol intake frequency: 0-2 drinks per day Substance Use Type: does not use Exam Initial Vital Signs Initial Vital Signs: Vital Signs Temperature 97.2 F L 06/20/22 09:17 Pulse Rate 70 06/20/22 09:17 Respiratory Rate 16 06/20/22 09:17 Blood Pressure 184/101 H 06/20/22 09:17 Pulse Oximetry 100 06/20/22 09:17 Oxygen Delivery Method Room Air 06/20/22 09:17 Course Orders Ordered: ED Orders 06/20/22 11:12 CT angio chest PE protocol Stat 06/20/22 11:40 Respiratory Panel (Film Array) Stat 06/20/22 11:59 Urine Culture Stat Urine Microscopic Stat Discontinued Medications Sodium Chloride (Normal Saline 0.9%) 1,000 mls @ 150 mls/hr IV CONT DARREN Last Infusion: 06/20/22 13:16 Dose: 0 mls/hr Documented By: Admin: 06/20/22 09:50 Dose: 150 mls/hr Documented By: JERMAINE Vital Signs Vital signs: Vital Signs - 8 hr 06/20/22 11:00 06/20/22 11:00 06/20/22 11:30 Pulse Rate 53 L Respiratory Rate 22 Blood Pressure 144/79 H 150/83 H Pulse Oximetry 100 06/20/22 11:30 06/20/22 11:51 06/20/22 11:51 Pulse Rate 54 L 56 L Respiratory Rate 17 16 Blood Pressure 151/80 H Pulse Oximetry 100 100 06/20/22 12:00 06/20/22 12:30 06/20/22 13:00 Pulse Rate 59 L 55 L 52 L Respiratory Rate 17 23 18 Blood Pressure Pulse Oximetry 100 100 100 Medical Decision Making Lab Data 06/20/22 09:25 06/20/22 09:25 Labs: Lab Results 06/20/22 06/20/22 06/20/22 Range/Units 09:25 09:25 09:25 WBC 3.0 L (4.5-11.0) X10^3/uL RBC 4.86 (4.5-5.9) X10^6/uL Hgb 12.4 L (13.5-17.5) g/dL Hct 36.5 L (41-53) % MCV 75.2 L (80-100) fL MCH 25.5 L (26-34) PG MCHC 33.9 (30-36) % RDW 18.1 H (11.6-14.8) % Plt Count 156 (150-400) X10^3/uL Neut % (Auto) 66.3 (50-75) % Lymph % (Auto) 14.1 L (25-40) % [place] % (Auto) 18.2 H (3-14) % Eos % (Auto) 0.8 L (2-4) % Baso % (Auto) 0.6 (0-2) % Neut # (Auto) 2000 (9241-0985) /uL Lymph # (Auto) 400 L (3821-5825) /uL [place] # (Auto) 600 (0-900) /uL Eos # (Auto) 0 (0-450) /uL Baso # (Auto) 0 (0-100) /uL PT 12.5 (10.1-12.7) SECONDS INR 1.1 (0.9-1.3) APTT 33 (26-36) SECONDS D-Dimer 1315 H (<500) ng/ml Sodium 133 L (137-145) mmol/L Potassium 3.9 (3.4-5.1) mmol/L Chloride 102 (98-107) mmol/L Carbon Dioxide 21 L (22-32) mmol/L BUN 14 (9-20) mg/dL Creatinine 0.84 (0.66-1.25) mg/dL Estimated GFR > 60 (>60) mL/min BUN/Creatinine Ratio 16.7 (6-22) Glucose 109 (80-110) mg/dL Calcium 9.2 (8.4-10.2) mg/dL Total Bilirubin 0.6 (0.2-1.3) mg/dL AST 40 (17-59) IU/L ALT 31 (<50) IU/L Alkaline Phosphatase 117 (38-126) U/L Total Creatine Kinase 84 (55-170) U/L CK-MB (CK-2) TNP CK-MB (CK-2) Rel Index TNP Troponin I < 0.012 (0.01-0.034) ng/mL NT-Pro-B Natriuret Pep 335 H (<125) pg/mL Total Protein 8.3 H (6.3-8.2) g/dL Albumin 4.1 (3.5-5.0) g/dL Globulin 4.2 H (1.7-4.1) g/dL Albumin/Globulin Ratio 1.0 (1.0-2.8) Lipase 534 H (23-300) U/L Procalcitonin 0.05 (<0.5) ng/mL Urine RBC (0-5/HPF) Urine WBC (0-5/HPF) Urine Bacteria (None) Ur Culture Indicated? Chlamy pneumoniae PCR (Not Detect) Adenovirus (PCR) (Not Detect) B. pertussis DNA (PCR) (Not Detecte) B.parapertussis DNA PCR (Not Detecte) Coronavirus OC43 (PCR) (Not Detect) Coronavirus HKU1 (PCR) (Not Detect) Coronavirus 229E (PCR) (Not Detect) SARS-CoV-2 (PCR) (Not Detecte) Coronavirus NL63 (PCR) (Not Detect) Human Metapneumovir PCR (Not Detect) Influenza Type A (PCR) (Not Detect) Influenza Type B (PCR) (Not Detect) M. pneumoniae (PCR) (Not Detect) Parainfluenza 1 (PCR) (Not Detect) Parainfluenza 2 (PCR) (Not Detect) Parainfluenza 3 (PCR) (Not Detect) Parainfluenza 4 (PCR) (Not Detect) RSV (PCR) (Not Detect) Entero/Rhino (PCR) (Not Detect) 06/20/22 06/20/22 Range/Units 11:40 11:59 WBC (4.5-11.0) X10^3/uL RBC (4.5-5.9) X10^6/uL Hgb (13.5-17.5) g/dL Hct (41-53) % MCV (80-100) fL MCH (26-34) PG MCHC (30-36) % RDW (11.6-14.8) % Plt Count (150-400) X10^3/uL Neut % (Auto) (50-75) % Lymph % (Auto) (25-40) % [place] % (Auto) (3-14) % Eos % (Auto) (2-4) % Baso % (Auto) (0-2) % Neut # (Auto) (0477-5913) /uL Lymph # (Auto) (4457-5888) /uL [place] # (Auto) (0-900) /uL Eos # (Auto) (0-450) /uL Baso # (Auto) (0-100) /uL PT (10.1-12.7) SECONDS INR (0.9-1.3) APTT (26-36) SECONDS D-Dimer (<500) ng/ml Sodium (137-145) mmol/L Potassium (3.4-5.1) mmol/L Chloride (98-107) mmol/L Carbon Dioxide (22-32) mmol/L BUN (9-20) mg/dL Creatinine (0.66-1.25) mg/dL Estimated GFR (>60) mL/min BUN/Creatinine Ratio (6-22) Glucose (80-110) mg/dL Calcium (8.4-10.2) mg/dL Total Bilirubin (0.2-1.3) mg/dL AST (17-59) IU/L ALT (<50) IU/L Alkaline Phosphatase (38-126) U/L Total Creatine Kinase (55-170) U/L CK-MB (CK-2) CK-MB (CK-2) Rel Index Troponin I (0.01-0.034) ng/mL NT-Pro-B Natriuret Pep (<125) pg/mL Total Protein (6.3-8.2) g/dL Albumin (3.5-5.0) g/dL Globulin (1.7-4.1) g/dL Albumin/Globulin Ratio (1.0-2.8) Lipase (23-300) U/L Procalcitonin (<0.5) ng/mL Urine RBC None seen (0-5/HPF) Urine WBC 10-30/hpf H (0-5/HPF) Urine Bacteria Many (>30) H (None) Ur Culture Indicated? Specimen cultured Chlamy pneumoniae PCR Not detected (Not Detect) Adenovirus (PCR) Not detected (Not Detect) B. pertussis DNA (PCR) Not detected (Not Detecte) B.parapertussis DNA PCR Not detected (Not Detecte) Coronavirus OC43 (PCR) Not detected (Not Detect) Coronavirus HKU1 (PCR) Not detected (Not Detect) Coronavirus 229E (PCR) Not detected (Not Detect) SARS-CoV-2 (PCR) Not detected (Not Detecte) Coronavirus NL63 (PCR) Not detected (Not Detect) Human Metapneumovir PCR Not detected (Not Detect) Influenza Type A (PCR) Not detected (Not Detect) Influenza Type B (PCR) Not detected (Not Detect) M. pneumoniae (PCR) Not detected (Not Detect) Parainfluenza 1 (PCR) Not detected (Not Detect) Parainfluenza 2 (PCR) Not detected (Not Detect) Parainfluenza 3 (PCR) Not detected (Not Detect) Parainfluenza 4 (PCR) Not detected (Not Detect) RSV (PCR) Not detected (Not Detect) Entero/Rhino (PCR) Not detected (Not Detect) Urine Dip Bedside Urine Glucose Negative Bedside Urine Bilirubin - Negative Bedside Urine Ketone - Negative Urine Specific [place] 1.010 Bedside Urine Occult Blood +/- Bedside Urine pH 6.0 Bedside Urine Protein - Negative Bedside Urine Urobilinogen - Negative Bedside Urine Nitrite + Positive Bedside Urine Leukocytes - Negative Esterase Point of care testing: Urine Dip Bedside Urine Glucose Negative Bedside Urine Bilirubin - Negative Bedside Urine Ketone - Negative Urine Specific [place] 1.010 Bedside Urine Occult Blood +/- Bedside Urine pH 6.0 Bedside Urine Protein - Negative Bedside Urine Urobilinogen - Negative Bedside Urine Nitrite + Positive Bedside Urine Leukocytes - Negative Esterase MDM Narrative Medical decision making narrative: CC: 72-year-old male with shortness of breath and cough productive of sputum Complicating co-morbidities: Age, smoker, cancer Data collected from: Patient Medical records reviewed: Prior notes reviewed in our EMR Differential considered, but not limited to: Pneumonia, pulmonary embolism versus other Exam documented above, pertinent findings include: Some increased work of breathing, depressed breath sounds throughout with crackles in bilateral bases Lab Test results independently reviewed as above. Pertinent findings: No leukocytosis or left shift, no evidence of anemia, D-dimer is elevated at 13 15 Independently reviewed EKG as above Imaging studies independently reviewed: CT angiogram without evidence of P, lili st x-ray does suggest pneumonia though CTA is unclear Treatments: Fluids Re-evaluations: Patient resting comfortably with nonlabored breathing for duration of visit Discussion: Patient with reassuring history and physical exam, labs without any significant abnormal findings. Vitals reassuring. Given productive cough and history of smoking with questionable pneumonia on chest x-ray we discussed the utility of treating for walking pneumonia. Given elevated D-dimer a CTA was performed which shows no PE. Disposition: see below, along with detailed discharge instructions that have been reviewed with patient as well as indications for ED re-evaluation and additional outpatient follow up Discharge Plan Departure Patient Disposition: Home Clinical Impression: Atypical pneumonia Instructions: DI for Atypical Pneumonia Activity Restrictions/Additional Instructions: *You have been diagnosed with [atypical pneumonia. As we discussed your history and physical exam as well as labs and imaging are reassuring and there is no large pneumonia, blood clot, fluid or other abnormality. But based on your history it seems most likely that treating for an atypical pneumonia would be beneficial to] *What to do: *Please continue to take your regular medications as directed. [x ] New medication prescriptions sent to your pharmacy: [[facility] ] [ ] New medication written as a paper prescription [ ] No new medications given *Please follow up with your primary care provider in 2-3 days, call for an appointment. Let them know you were seen in the Emergency Department and that we ask that you be seen in follow up. We will electronically transmit a record of today's note if your PCP is in our system * as we discussed you would likely have some help with your symptoms if you took an [id number] antihistamines such as Zyrtec or Olga. Also you mentioned that at times it is hard for you to clear the secretions which can be helped by the [id number] medication called Mucinex. *If you do not have a primary care provider please contact the [facility] Resource line at [phone]. They will ask some questions about your medical history and help get you set up with a doctor in the community. *Return to Emergency Department if you should have any new, worsening or concerning symptoms, such as [fever greater than 101 F, shaking chills, worsening pain, persistent vomiting or other bothersome symptoms] Prescriptions: New doxycycline hyclate 100 mg tablet 100 mg PO BID Qty: 20 0RF No Action levothyroxine 100 mcg tablet 100 mcg PO DAILY Qty: 90 3RF Hold Instructions: Need follow up lab atorvastatin 40 mg tablet 80 mg PO BEDTIME Qty: 180 0RF Rx Instructions: cannot swallow large 80mg tablet ciprofloxacin HCl 0.3 % drops 2 drp EYE-RIGHT Q2H 14 Days Qty: 5 0RF fluorouracil 2.5 gram/50 mL Solution See Rx Instructions .ROUTE .COMPLEX Qty: 1 0RF Rx Instructions: continuous infusion over 46 hours lidocaine-prilocaine 2.5-2.5 % Cream 1 applic topical PRN PRN (Reason: Port/Catheter Care) Qty: 30 1RF Rx Instructions: apply to the skin over the port at least 2 hrs before planned use of the port. Cover the cream with a small piece of plastic wrap and leave in place until the port is accessed fluorouracil 2.5 gram/50 mL Solution See Rx Instructions .ROUTE .COMPLEX Qty: 1 0RF Rx Instructions: continuous infusion over 46 hours ondansetron 4 mg Tablet,Disintegrating 4 mg PO Q6H Qty: 60 1RF prochlorperazine maleate [Compazine] 10 mg Tablet 10 mg PO Q6H PRN (Reason: nausea, chemotherapy) Qty: 60 1RF pramoxine 1 % Foam 1 applic WV QID Qty: 30 1RF Rx Instructions: Dispense pramoxine foam onto a clean tissue or pad and apply externally to the affected area. mouthwashes Kit 30 ml MUCOUS MEMBRANE QID Qty: 320 0RF Rx Instructions: swish, gargle and spit one to two teaspoonsful for 1 minute. Repeat every six hours as needed. May be swallowed if esophageal involvement. aspirin 81 mg Tablet,Delayed Release (Dr/Ec) 81 mg PO DAILY Qty: 1 0RF Rx Instructions: OTC Referrals: Chase Perez MD [Primary Care Provider] - Stand Alone Forms: Patient Portal/API
[2022-06-20 09:33] LABS: Add Manual Diff / Slide Review NO; Basophils Absolute Auto 0 /uL (0-100); Basophils Percent Auto 0.6 % (0-2); Eosinophils Absolute Auto 0 /uL (0-450); Eosinophils Percent Auto 0.8 % (2-4); Hematocrit 36.5 % (41-53); Hemoglobin 12.4 g/dL (13.5-17.5); Lymphocytes Absolute Auto 400 /uL (1100-4500); Lymphocytes Percent Auto 14.1 % (25-40); Mean Corpuscular HGB Conc 33.9 % (30-36); Mean Corpuscular Hemoglobin 25.5 PG (26-34); Mean Corpuscular Volume 75.2 fL (80-100); Monocytes Absolute Auto 600 /uL (0-900); Monocytes Percent Auto 18.2 % (3-14); Neutrophils Absolute Auto 2000 /uL (1500-7000); Neutrophils Percent Auto 66.3 % (50-75); Platelet Count 156 X10^3/uL (150-400); Red Blood Cell Count 4.86 X10^6/uL (4.5-5.9); Red Cell Distribution Width 18.1 % (11.6-14.8)
[2022-06-20 09:41] LABS: INR 1.1 (0.9-1.3); Prothrombin Time 12.5 SECONDS (10.1-12.7)
[2022-06-20 09:42] LABS: D Dimer 1315 ng/ml (<500)
[2022-06-20 09:43] LABS: PTT Partial Thromboplastin Tim 33 SECONDS (26-36)
[2022-06-20 09:48] LABS: Alanine Aminotransferase 31 IU/L (<50); Albumin 4.1 g/dL (3.5-5.0); Alkaline Phosphatase 117 U/L (38-126); Aspartate Aminotransferase 40 IU/L (17-59); BUN Creatinine Ratio 16.7 (6-22); Bilirubin Total 0.6 mg/dL (0.2-1.3); Blood Urea Nitrogen 14 mg/dL (9-20); Calcium 9.2 mg/dL (8.4-10.2); Carbon Dioxide 21 mmol/L (22-32); Chloride 102 mmol/L (98-107); Creatine Kinase 84 U/L (55-170); Estimated Glomerular Filt Rate > 60 mL/min (>60); Globulin 4.2 g/dL (1.7-4.1); Glucose 109 mg/dL (80-110); HEMOLYSIS < 15 (0-50); Lipase 534 U/L (23-300); Potassium 3.9 mmol/L (3.4-5.1); Sodium 133 mmol/L (137-145); Total Protein 8.3 g/dL (6.3-8.2)
[2022-06-20] MEDS: SODIUM CHLORIDE 0.9% 1,000 ML 150 ML IV (09:50)
[2022-06-20 10:00] LABS: NT-proBNP (BNP-Adult 18+) 335 pg/mL (<125); Troponin I < 0.012 ng/mL (0.01-0.034)
[2022-06-20 10:05] LABS: Procalcitonin 0.05 ng/mL (<0.5)
--- NOTE | 2022-06-20 11:12 | DI.CT.S_ITS ---
PROCEDURE: CT ANGIO CHEST PE PROTOCOL INDICATIONS: chest pain, sob, cough, critical dimer TECHNIQUE: After the administration of intravenous contrast, 2 mm thick sections acquired from the pulmonary apices to the posterior costophrenic angles. 3-dimensional maximum intensity projection (MIP) coronal and sagittal reformats were then acquired through the thorax. For radiation dose reduction, the following was used: automated exposure control, adjustment of mA and/or kV according to patient size. COMPARISON: None. FINDINGS: Image quality: Good Lungs and pleura: Atelectasis and scarring at the bases. No dense airspace disease. No pleural effusions. Scattered micro nodules/granulomas are present, attention on follow-up oncologic imaging. Mediastinum, heart, and esophagus: No pulmonary embolism. Coronary calcifications are present. No pathologic adenopathy by size criteria Chest wall and thyroid: A right port catheter terminates in the SVC. Upper abdomen: Not well seen on these arterial phase images. No gross abnormality is present. Bones: Pectus excavatum. Degenerative changes. IMPRESSION: No pulmonary embolism. No significant airspace disease. There are coronary calcifications. Other findings as above. Dictated by: Kike Brown M.D. on 06/20/2022 at 12:04 Approved by: Kike Brown M.D. on 06/20/2022 at 12:09
[2022-06-20 12:30] LABS: Bacteria Urine Many (>30); Culture Indicated Urine Specimen Cultured; RBC Urine None Seen (0-5/HPF); WBC Urine 10-30/HPF (0-5/HPF)
[2022-06-20 12:57] LABS: Adenovirus Not Detected (Not Detect); B. parapertussis Not Detected (Not Detecte); Bordetella pertussis Not Detected (Not Detecte); Chlamydophila pneumoniae Not Detected (Not Detect); Coronavirus 229E Not Detected (Not Detect); Coronavirus HKU1 Not Detected (Not Detect); Coronavirus NL 63 Not Detected (Not Detect); Coronavirus OC43 Not Detected (Not Detect); Human Metapneumovirus Not Detected (Not Detect); Human Rhinovirus/Enterovirus Not Detected (Not Detect); Influenza A Not Detected (Not Detect); Influenza B Not Detected (Not Detect); Mycoplasma pneumoniae Not Detected (Not Detect); Parainfluenza Virus 1 Not Detected (Not Detect); Parainfluenza Virus 2 Not Detected (Not Detect); Parainfluenza Virus 3 Not Detected (Not Detect); Parainfluenza Virus 4 Not Detected (Not Detect); Respiratory Syncytial Virus Not Detected (Not Detect); SARS- CoV-2 Not Detected (Not Detecte)
== END 2022-06-20 13:23 | disposition home or self-care (01) ==
PROVIDERS: Emergency Provider Emergency Medicine; PCP Student in an Organized Health Care Education/Training Program
DX: J18.9 Pneumonia, unspecified organism (principal); C20 Malignant neoplasm of rectum; R06.02 Shortness of breath
CPT/HCPCS: 36415; 71045; 71275; 80053; 81003; 81015; 82550; 83690; 83880; 84145; 84484; 85025; 85379; 85610; 85730; 87077; 87086; 87186; 87633; 93005; 99284; Q9967

== ENCOUNTER → 2023-03-02 08:12 | Outpatient (CLI) | payer MEDICARE, OTHER, SELFPAY ==
[2022-03-30 10:23] VITALS: BMI 26.3
[2023-03-02 08:33] LABS: Hemoglobin 13.1 g/dL (13.5-17.5); Mean Corpuscular HGB Conc 33.6 % (30-36); Mean Corpuscular Hemoglobin 27.2 PG (26-34); Platelet Count 208 X10^3/uL (150-400); Red Blood Cell Count 4.81 X10^6/uL (4.5-5.9); Red Cell Distribution Width 17.9 % (11.6-14.8); White Blood Cell Count 4.5 X10^3/uL (4.5-11.0)
[2023-03-02 08:56] LABS: Alanine Aminotransferase 31 IU/L (<50); Albumin 4.1 g/dL (3.5-5.0); Alkaline Phosphatase 91 U/L (38-126); Aspartate Aminotransferase 32 IU/L (17-59); BUN Creatinine Ratio 19.2 (6-22); Bilirubin Total 0.5 mg/dL (0.2-1.3); Blood Urea Nitrogen 20 mg/dL (9-20); Calcium 9.9 mg/dL (8.4-10.2); Carbon Dioxide 23 mmol/L (22-32); Chloride 106 mmol/L (98-107); Cholesterol 103 mg/dL (140-199); Estimated Glomerular Filt Rate > 60 mL/min (>60); Glucose 93 mg/dL (80-110); HDL Cholesterol 27 mg/dL (40-60); HEMOLYSIS < 15 (0-50); LDL Cholesterol Calculated 55 mg/dL (<100); Potassium 5.1 mmol/L (3.4-5.1); Sodium 138 mmol/L (137-145); Total Protein 8.1 g/dL (6.3-8.2); Triglycerides 106 mg/dL (35-150)
[2023-03-02 09:41] LABS: TSH w/ Reflex to FT4 1.24 uIU/mL (0.47-4.68)
== END ==
PROVIDERS: PCP Internal Medicine; Referring Provider Internal Medicine; Visit Provider Internal Medicine
DX: E03.9 Hypothyroidism, unspecified (principal); E78.2 Mixed hyperlipidemia; C20 Malignant neoplasm of rectum
CPT/HCPCS: 36415; 80053; 80061; 84443; 85027

== ENCOUNTER → 2024-03-03 16:22 | Outpatient (CLI) | payer MEDICARE, OTHER, SELFPAY ==
[2022-03-30 10:23] VITALS: BMI 26.3
[2024-03-03 18:08] LABS: Aspartate Aminotransferase 32 IU/L (17-59); BUN Creatinine Ratio 18.7 (6-22); Blood Urea Nitrogen 20 mg/dL (9-20); Calcium 9.4 mg/dL (8.4-10.2); Carbon Dioxide 27 mmol/L (22-32); Chloride 104 mmol/L (98-107); Cholesterol 98 mg/dL (140-199); Estimated Glomerular Filt Rate > 60 mL/min (>60); Glucose 78 mg/dL (80-110); HDL Cholesterol 30 mg/dL (40-60); HEMOLYSIS 23 (0-50); LDL Cholesterol Calculated 46 mg/dL (<100); Potassium 4.8 mmol/L (3.4-5.1); Sodium 137 mmol/L (137-145); Triglycerides 109 mg/dL (35-150)
[2024-03-03 18:34] LABS: TSH w/ Reflex to FT4 1.44 uIU/mL (0.47-4.68)
== END ==
LOC: LAB 16:24
PROVIDERS: PCP Internal Medicine; Referring Provider Internal Medicine; Visit Provider Internal Medicine
DX: E03.9 Hypothyroidism, unspecified (principal); E78.2 Mixed hyperlipidemia
CPT/HCPCS: 80048; 80061; 84443; 84450

== ENCOUNTER → 2024-07-14 17:27 | Outpatient (CLI) | payer MEDICARE, OTHER, SELFPAY ==
[2022-03-30 10:23] VITALS: BMI 26.3
[2024-07-14 18:09] LABS: Hematocrit 39.1 % (41-53); Hemoglobin 13.1 g/dL (13.5-17.5); Mean Corpuscular HGB Conc 33.5 % (30-36); Mean Corpuscular Hemoglobin 27.4 PG (26-34); Mean Corpuscular Volume 81.9 fL (80-100); Platelet Count 184 X10^3/uL (150-400); Red Blood Cell Count 4.77 X10^6/uL (4.5-5.9); Red Cell Distribution Width 16.5 % (11.6-14.8); White Blood Cell Count 4.6 X10^3/uL (4.5-11.0)
[2024-07-14 18:25] LABS: Alanine Aminotransferase 26 IU/L (<50); Albumin 4.2 g/dL (3.5-5.0); Albumin Globulin Ratio 1.3 (1.0-2.8); Alkaline Phosphatase 89 U/L (38-126); Aspartate Aminotransferase 35 IU/L (17-59); BUN Creatinine Ratio 19.3 (6-22); Bilirubin Total 0.5 mg/dL (0.2-1.3); Blood Urea Nitrogen 21 mg/dL (9-20); Calcium 9.4 mg/dL (8.4-10.2); Carbon Dioxide 26 mmol/L (22-32); Chloride 104 mmol/L (98-107); Estimated Glomerular Filt Rate > 60 mL/min (>60); Globulin 3.3 g/dL (1.7-4.1); Glucose 89 mg/dL (70-99); HEMOLYSIS < 15 (0-50); Potassium 4.4 mmol/L (3.4-5.1); Sodium 138 mmol/L (137-145); Total Protein 7.5 g/dL (6.3-8.2)
[2024-07-19 15:11] LABS: Aldosterone/Renin Activity Rat 3.4 (.); Plama Renin, LC/MS/MS 1.1 ng/mL/hr (.)
== END ==
PROVIDERS: PCP Internal Medicine; Referring Provider Internal Medicine; Visit Provider Internal Medicine
DX: I10 Essential (primary) hypertension (principal); H34.231 Retinal artery branch occlusion, right eye; F17.200 Nicotine dependence, unspecified, uncomplicated
CPT/HCPCS: 36415; 80053; 82088; 84244; 85027

== ENCOUNTER → 2024-07-25 13:25 | Outpatient (CLI) | payer MEDICARE, OTHER, SELFPAY ==
[2022-03-30 10:23] VITALS: BMI 26.3
[2024-07-29 05:11] LABS: Normetanephrine Total 356 ug/24 hr (156-729); Urine, Metanephrine 127 ug/L (Undefined); Urine, Normetanephrine 356 ug/L (Undefined)
== END ==
PROVIDERS: PCP Internal Medicine; Referring Provider Internal Medicine; Visit Provider Internal Medicine
DX: I10 Essential (primary) hypertension (principal); H34.231 Retinal artery branch occlusion, right eye; F17.200 Nicotine dependence, unspecified, uncomplicated
CPT/HCPCS: 83835; 84585

== ENCOUNTER 2024-10-02 11:15 | Emergency (ER) | payer MEDICARE, OTHER, SELFPAY ==
[2022-03-30 10:23] VITALS: BMI 26.3
[2024-10-02 11:18] VITALS: BP 151/85; PULSE 89; RESP 16; TEMP 36.9; O2SAT 99; BMI 24.7
--- NOTE | 2024-10-02 11:26 | ED_ITS ---
HPI - Wound/Laceration <Berkley Davila PA-C - Last Filed: 10/02/24 12:34> General Chief Complaint: Wound/Laceration Stated Complaint: Left thumb cut Time Seen by Provider: 10/02/24 11:25 Source: patient Mode of arrival: Ambulatory History of Present Illness HPI narrative: Mr. Sun is a very pleasant 74-year-old male with a past medical history hypertension, hyperlipidemia, rectal cancer in remission, tobacco use, left subclavian artery occlusion who presents to the emergency department for laceration to his left thumb that occurred prior to arrival. Patient was using a drill when the drill bit slipped off and the head of the screw caught his left thumb. He now has a laceration on the palmar aspect of the left thumb across the DIP joint line. He is still able to flex and extend the thumb, bleeding is controlled with direct pressure, and he has sensation and brisk capillary refill distal to the wound. His last Tdap is up-to-date, 01/16/2020. His pain is controlled. He is not on blood thinners except for aspirin. Related Data Previous Rx's ?Medication ?Instructions ?Recorded aspirin 81 mg tablet,delayed 81 mg PO DAILY #1 tab release atorvastatin 40 mg tablet 80 mg (2 x 40 mg) PO BEDTIME #180 03/20/24 tabs levothyroxine 100 mcg tablet 100 mcg PO DAILY #90 tabs 04/23/24 amlodipine 10 mg tablet 10 mg PO DAILY #90 tabs 04/05 cephalexin 500 mg capsule 500 mg PO TID 5 days #15 cap s 10/02/24 Allergies Allergy/AdvReac Type Severity Reaction Status Date / Time No Known Drug Allergies Allergy Verified 09/09/24 10:20 Review of Systems <Berkley Davila PA-C - Last Filed: 10/02/24 12:34> Review of Systems ROS Unobtainable: All systems reviewed & are unremarkable except as noted in HPI and below Patient History <Berkley Davila PA-C - Last Filed: 10/02/24 12:34> Medical History Left subclavian artery occlusion Essential hypertension Tobacco use disorder Vision loss Right retinal artery branch occlusion Hypothyroid Hx of tongue cancer (2018) Dysphagia (03/22/17) 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 Well-developed patient, in no acute distress. HEAD: Atraumatic. Normocephalic. EYES: No scleral icterus. No injection or drainage. CARDIOVASCULAR: Regular rate RESPIRATORY: ?Nonlabored respirations. ?Speaking in clear, full sentences. EXTREMITIES: On the left thumb, there is a 2cm jagged laceration along the DIP joint line on the palmar surface. Bleeding is controlled. Patient is able to flex and extend at the D IP joint. There is brisk capillary refill and sensation intact to light touch intact distal to the wound. 1+ radial pulse NEURO: AOx3. ?Clear speech. ?Moves all 4 extremities appropriately. SKIN: Left thumb laceration described above. No rashes. Skin is warm and dry. Initial Vital Signs Initial Vital Signs: Vital Signs Temperature 98.4 F 10/02/24 11:18 Pulse Rate 89 10/02/24 11:18 Respiratory Rate 16 10/02/24 11:18 Blood Pressure 151/85 H 10/02/24 11:18 Pulse Oximetry 99 10/02/24 11:18 Oxygen Delivery Method Room Air 10/02/24 11:18 <Brisa Panda MD - Last Filed: 10/04/24 19:07> Initial Vital Signs Initial Vital Signs: Vital Signs Temperature 98.4 F 10/02/24 11:18 Pulse Rate 89 10/02/24 11:18 Respiratory Rate 16 10/02/24 11:18 Blood Pressure 151/85 H 10/02/24 11:18 Pulse Oximetry 99 10/02/24 11:18 Oxygen Delivery Method Room Air 10/02/24 11:18 Procedures <Berkley Davila PA-C - Last Filed: 10/02/24 12:34> Laceration Repair Laceration 1: Time of procedure: 12:09 Site: hand (thumb) Side (If applicable): left Size (cm): 2 Description: irregular Depth: simple, single layer Pre-repair: wound explored, irrigated extensively (cleansed with betadine) and deep structures intact Skin layer closed with: nylon Skin layer suture size: 5-0 Number of sutures: 3 Technique: simple, interrupted Nerve Block Nerve Block 1: Time of procedure: 11:53 Local Anesthetic: lidocaine 1% Amount of anesthesia used (mL): 4 Side: left Nerve Blocks: digital Procedure Successful: Yes Patient Tolerated Procedure: Well Course <Berkley Davila PA-C - Last Filed: 10/02/24 12:34> Orders Ordered: Discontinued Medications Bacitracin (Bacitracin Oint 0.9 Gm Pckt) 1 applic TOP NOW ONE Stop: 10/02/24 11:37 Last Admin: 10/02/24 11:50 Dose: 1 applic Documented By: RENNY Cephalexin HCl (Cephalexin 250 Mg Capsule) 500 mg PO NOW ONE Stop: 10/02/24 12:00 Last Admin: 10/02/24 12:34 Dose: 500 mg Documented By: RENNY Vital Signs Vital signs: Vital Signs - 8 hr 10/02/24 11:18 Temperature 98.4 F Pulse Rate 89 Respiratory Rate 16 Blood Pressure 151/85 H Pulse Oximetry 99 Oxygen Delivery Method Room Air <Brisa Panda MD - Last Filed: 10/04/24 19:07> Orders Ordered: Discontinued Medications Bacitracin (Bacitracin Oint 0.9 Gm Pckt) 1 applic TOP NOW ONE Stop: 10/02/24 11:37 Last Admin: 10/02/24 11:50 Dose: 1 applic Documented By: RENNY Cephalexin HCl (Cephalexin 250 Mg Capsule) 500 mg PO NOW ONE Stop: 10/02/24 12:00 Last Admin: 10/02/24 12:34 Dose: 500 mg Documented By: RENNY Vital Signs Vital signs: Vital Signs - 8 hr 10/02/24 11:18 Temperature 98.4 F Pulse Rate 89 Respiratory Rate 16 Blood Pressure 151/85 H Pulse Oximetry 99 Oxygen Delivery Method Room Air [facility] - Wound/Laceration <Berkley Davila PA-C - Last Filed: 10/02/24 12:34> Medical Records Attestation: I reviewed the patient's medical records. Imaging Data Left Thumb X-Ray: Radiologist's Impression: PROCEDURE: XR FINGER LT MIN 2V INDICATIONS: lac from drill bit thumb DIP TECHNIQUE: AP hand, 2 views of the thumb acquired. COMPARISON: [facility], , FINGER RT, 08/18/2015, 14:14. FINDINGS: Bones: No fractures or dislocations. Thumb IP joint degenerative arthritis. No suspicious bony lesions. Soft tissues: No suspicious soft tissue calcifications. No radiopaque foreign bodies. IMPRESSION: No acute bony abnormality. No radiopaque foreign body. Dictated by: Israel Aguilar M.D. on 10/02/2024 at 11:59 Approved by: Israel Aguilar M.D. on 10/02/2024 at 12:00 [facility] Narrative Medical decision making narrative: 74-year-old male with a past medical history hypertension, hyperlipidemia, rectal cancer in remission, tobacco use, left subclavian artery occlusion who presents to the emergency department for laceration to his left thumb that occurred prior to arrival. Differential diagnosis includes but isn't limited to laceration, foreign body, contamination, fracture, etc. On exam patient is in no acute distress, nontoxic appearing, vital signs appropriate, left thumb neurovascularly intact. Bleeding controlled, pain con trolled. 2 cm jagged laceration overlying the D IP joint line of the left thumb. We will obtain x-ray given mechanism of injury, performed digital nerve block, extensively irrigate cleansed and repaired laceration using sutures. We will start the patient on Keflex prevent infection. His Tdap is already up-to-date. Patient tolerated digital block and laceration repair well. A small piece of s kin was debrided. Three simple interrupted sutures were removed. Bacitracin and nonadherent dressing were applied to the finger to prevent flexion/extension. X-ray negative for foreign body or bony abnormality. First dose of Keflex given in the ED. Discussed proper wound care, signs symptoms of infection, ED return precautions and suture removal in 10-14 days. Patient verbalized understanding of all information is agreeable with the plan. He is stable for discharge home. Discharge Plan Departure Patient Disposition: Home Clinical Impression: Laceration of thumb Qualifiers: Encounter type: initial encounter Damage to nail status: without damage Foreign body presence: without foreign body Laterality: left Qualified Code(s): S61.012A - Laceration without foreign body of left thumb without damage to nail, initial encounter Instructions: DI for Laceration Repair Activity Restrictions/Additional Instructions: Dear Mr. Sun, Thank you for coming to the emergency department. Today you had a laceration to your left thumb. We have placed 3 sutures. They need to be removed in 10-14 days. You may do this in your doctor's office, the [id number], or here if necessary. Please keep the dressing on your wound clean, dry, and intact for the next 24 hours. After this time, you may remove the dressing and gently clean the wound with soap and water, then pat dry. Keep the wound clean and covered. Avoid soaking the wound in any water such as a bath, pool, or the ocean. If you develop any signs of wound infection such as increased redness, pus drainage, streaking redness, or fevers, please return to the ER immediately for evaluation. Once sutures are removed and the wound has healed, apply sunscreen daily to reduce the appearance of scars. A short course of antibiotics have been sent to your pharmacy ([facility]) in order to help prevent wound infection. However if the wound does appear to develop infection, you need to return to the ER for further management and possible additional or prolonged antibiotics. Please follow up with your primary care doctor within the next 2-3 days for ER follow-up. (If you do not have a PCP you can call [phone]. ?to schedule an appointment with an [facility] Primary Care Provider) IF YOU DEVELOP ANY NEW OR WORSENING SYMPTOMS, RETURN TO THE ER! Please read the attached instructions, they highlight more specific treatments and interventions for you at home. Thank you for letting me participate in your care, Berkley Davila PA-C Prescriptions: New cephalexin 500 mg capsule 500 mg PO TID 5 Days Qty: 15 0RF No Action atorvastatin 40 mg tablet 80 mg PO BEDTIME Qty: 180 3RF Rx Instructions: cannot swallow large 80mg tablet levothyroxine 100 mcg tablet 100 mcg PO DAILY Qty: 90 3RF amlodipine 10 mg tablet 10 mg PO DAILY Qty: 90 3RF aspirin 81 mg Tablet,Delayed Release (Dr/Ec) 81 mg PO DAILY Qty: 1 0RF Rx Instructions: OTC Referrals: Preet Mcdaniel MD [Primary Care Provider, Internal Medicine] Stand Alone Forms: Patient Portal/API ED Sign-out <Brisa Panda MD - Last Filed: 10/04/24 19:07> Cosign ED Attending Cosshawnature Attestation: I was immediately available in the department for consultation throughout this patient's visit. Brisa Panda MD
--- NOTE | 2024-10-02 11:35 | DI.RAD.S_ITS ---
PROCEDURE: XR FINGER LT MIN 2V INDICATIONS: lac from drill bit thumb DIP TECHNIQUE: AP hand, 2 views of the thumb acquired. COMPARISON: [facility], JOSE OLIVO RT, 08/18/2015, 14:14. FINDINGS: Bones: No fractures or dislocations. Thumb IP joint degenerative arthritis. No suspicious bony lesions. Soft tissues: No suspicious soft tissue calcifications. No radiopaque foreign bodies. IMPRESSION: No acute bony abnormality. No radiopaque foreign body. Dictated by: Israel Aguilar M.D. on 10/02/2024 at 11:59 Approved by: Israel Aguilar M.D. on 10/02/2024 at 12:00
[2024-10-02] MEDS: BACITRACIN OINT 0.9 GM PCKT 1 APPLIC TOP (11:50)
[2024-10-02 12:35] VITALS: BP 130/77; PULSE 65; RESP 18; TEMP 36.4; O2SAT 97
== END 2024-10-02 12:41 | disposition home or self-care (01) ==
PROVIDERS: Emergency Provider Physician Assistant; PCP Internal Medicine
DX: S61.012A Laceration without foreign body of left thumb without damage to nail, initial encounter (principal); W26.9XXA Contact with unspecified sharp object(s), initial encounter
CPT/HCPCS: 12001; 64450; 73140; 99283

== ENCOUNTER 2024-10-08 16:25 | Emergency (ER) | payer MEDICARE, OTHER, SELFPAY ==
[2022-03-30 10:23] VITALS: BMI 26.3
[2024-10-08] VITALS (15 sets, daily range): BP systolic 102–163; BP diastolic 62–88; PULSE 54–67; RESP 10–25; TEMP 37.1; O2SAT 95–98; BMI 27.4
--- NOTE | 2024-10-08 16:41 | DI.RAD.S_ITS ---
PROCEDURE: XR CHEST 1V INDICATIONS: Chest Pain TECHNIQUE: One view of the chest was acquired. COMPARISON: [facility], CT, CT CHEST ABDOMEN PELVIS WITH CONTRAST, 07/28/2024, 12:37. [facility], CR, XR CHEST 1V, 06/20/2022, 9:29. FINDINGS: Surgical changes and devices: None. Lungs and pleura: On this semiupright portable chest examination, no large pneumothorax or large pleural effusions are seen. No focal infiltrates are seen. Mediastinum: Mediastinal contours appear normal. Heart size is normal. Bones and chest wall: No suspicious bony lesions. Age-appropriate bony degenerative changes are seen. Overlying soft tissues appear unremarkable. IMPRESSION: Limited portable chest examination, without a significant cardiopulmonary abnormality identified. Dictated by: Gentry King M.D. on 10/08/2024 at 16:08 Approved by: Gentry King M.D. on 10/08/2024 at 16:09
[2024-10-08 17:01] LABS: Add Manual Diff / Slide Review NO; Hematocrit 39.7 % (41-53); Hemoglobin 13.7 g/dL (13.5-17.5); INR 1.0 (0.9-1.3); Lymphocytes Absolute Auto 900 /uL (1100-4500); Mean Corpuscular HGB Conc 34.6 % (30-36); Mean Corpuscular Hemoglobin 28.4 PG (26-34); Mean Corpuscular Volume 82.1 fL (80-100); Platelet Count 212 X10^3/uL (150-400); Prothrombin Time 11.4 SECONDS (9.4-12.5)
[2024-10-08 17:04] LABS: PTT Partial Thromboplastin Tim 31 SECONDS (25.1-36.5)
[2024-10-08 17:10] LABS: Alanine Aminotransferase 32 IU/L (<50); Albumin 4.5 g/dL (3.5-5.0); Albumin Globulin Ratio 1.1 (1.0-2.8); Alkaline Phosphatase 95 U/L (38-126); Blood Urea Nitrogen 20 mg/dL (9-20); Calcium 9.5 mg/dL (8.4-10.2); Carbon Dioxide 26 mmol/L (22-32); Chloride 103 mmol/L (98-107); Creatine Kinase 98 U/L (55-170); Estimated Glomerular Filt Rate > 60 mL/min (>60); Globulin 4.2 g/dL (1.7-4.1); Glucose 106 mg/dL (70-99); HEMOLYSIS < 15 (0-50); Lipase 198 U/L (23-300); Magnesium 1.9 mg/dL (1.6-2.3); Potassium 4.1 mmol/L (3.4-5.1); Sodium 137 mmol/L (137-145); Total Protein 8.7 g/dL (6.3-8.2)
[2024-10-08 17:21] LABS: NT-proBNP (BNP-Adult 18+) 105 pg/mL (<125); Troponin I < 0.012 ng/mL (0.01-0.034)
--- NOTE | 2024-10-08 17:23 | EKG_ITS ---
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
--- NOTE | 2024-10-08 18:56 | ED_ITS ---
HPI - Dizziness <José Manuel Veloz MD - Last Filed: 10/14/24 18:43> General Chief Complaint: Dizziness Stated Complaint: Dizziness, tinnitus, nausea Time Seen by Provider: 10/08/24 17:57 Source: patient and EMS Mode of arrival: EMS History of Present Illness HPI Narrative: This is a 74-year-old male with a history of head and neck cancer hypertension peripheral vascular disease presenting with a 2 hour episode of dizziness. He describes abrupt onset associated with nausea, did vomit 1 time did not have visual changes did not have headache numbness or weakness. He did note tinnitus involving his left ear. Says that he sees Otolaryngology for ear wax buildup. No difficulty with speech or swallowing noted. Says he had a very brief episode of dizziness a couple of years ago and is known to have a subclavian occlusion. Also sounds like he had a previous central retinal artery occlusion involving his right eye. The patient has hypertension he continues to smoke. Patient reports onset at about 4:00 p.m., symptoms resolved by 6:00 p.m.. He is on aspirin 81 mg daily which he took this morning. He is on atorvastatin 80 mg daily and amlodipine. Related Data Home Medications ?Medication ?Instructions ?Recorded ?Confirmed clopidogrel 75 mg tablet 75 mg PO DAILY 10/14/2408/03 meclizine 25 mg tablet 25 mg PO TID 10/14/24 Previous Rx's ?Medication ?Instructions ?Recorded aspirin 81 mg tablet,delayed 81 mg PO DAILY #1 tab release atorvastatin 40 mg tablet 80 mg (2 x 40 mg) PO BEDTIME #180 03/20/24 tabs levothyroxine 100 mcg tablet 100 mcg PO DAILY #90 tabs 04/23/24 terbinafine HCl 250 mg tablet 250 mg PO DAILY #14 tabs 10/09/24 Allergies Allergy/AdvReac Type Severity Reaction Status Date / Time No Known Drug Allergies Allergy Verified 10/09/24 11:34 Patient History <José Manuel Veloz MD - Last Filed: 10/14/24 18:43> Medical History Dysphagia (03/22/17) Essential hypertension Hx of tongue cancer (2018) Hypothyroid Left subclavian artery occlusion Malignant neoplasm of head and neck (03/26/15) Right retinal artery branch occlusion Stenosis of right carotid artery Tobacco use disorder Vision loss Surgical History History of radical neck dissection Family History Father Age: 94 Hx of CABG Mother Age: 92 Pacemaker Social History details: , 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, 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 household members: spouse and children alcohol intake: never Smoking Status: Current every day smoker tobacco type: cigarettes alcohol intake frequency: 0-2 drinks per day Exam <José Manuel Veloz MD - Last Filed: 10/14/24 18:43> Initial Vital Signs Initial Vital Signs: Vital Signs Temperature 98.7 F 10/08/24 16:36 Pulse Rate 67 10/08/24 16:36 Respiratory Rate 15 10/08/24 16:36 Blood Pressure 113/72 10/08/24 16:36 Pulse Oximetry 97 10/08/24 16:36 Oxygen Delivery Method Room Air 10/08/24 16:36 vital signs are reviewed Const General: cooperative and No acute distress HENMT Head: normocephalic and atraumatic Ears: hearing grossly normal bilaterally and other (As significant ear wax bilaterally but does not appear to be occluded) Face and sinus: face symmetric Mouth: moist mucous membranes HENMT Other: Tongue protrudes to the right of midline, patient states this is chronic after surgery for cancer Eyes Pupils: PERRL EOM: EOM intact bilaterally Neck Neck: normal visual inspection, supple (No carotid bruit) and No JVD Chest Chest: normal inspection of the chest Resp Effort & Inspection: normal respiratory effort and able to speak in complete sentences Auscultation: clear to auscultation bilaterally Cardio Rate: regular rate Rhythm: regular rhythm Heart Sounds: no murmurs Other: Normal heart rate GI Inspection: normal to inspection Palpation: soft Auscultation: normal bowel sounds Back/Spine/Pelvis Back: normal to inspection Skin General: no rashes or lesions noted and warm Neuro General: patient alert, patient oriented x3, moves all extremities and other (Speech is fluent, motor intact, njshke-noho-yvuoco intact) Speech: speech normal Extrem General: full ROM Psych Appearance: grossly normal <Ignacio Wolff DO - Last Filed: 10/08/24 20:55> Initial Vital Signs Initial Vital Signs: Vital Signs Temperature 98.7 F 10/08/24 16:36 Pulse Rate 67 10/08/24 16:36 Respiratory Rate 15 10/08/24 16:36 Blood Pressure 113/72 10/08/24 16:36 Pulse Oximetry 97 10/08/24 16:36 Oxygen Delivery Method Room Air 10/08/24 16:36 Course <José Manuel Veloz MD - Last Filed: 10/14/24 18:43> Orders Ordered: ED Orders 10/08/24 16:35 Complete Blood Count AUTO DIFF Stat Comprehensive Metabolic Panel Stat Lipase Stat Magnesium Stat NT-proBNP (BNP-Adult 18+) Stat PTT Partial Thromboplastin Yoan Stat Prothrombin Time INR Stat Troponin & CK Cardiac Panel Stat 10/08/24 16:41 XR chest 1V Stat EKG-12 Lead Stat 10/08/24 18:55 CT angio head and neck Stat CT head/brain wo con Stat Vital Signs Vital signs: Vital Signs - 8 hr 10/08/24 16:36 10/08/24 17:24 10/08/24 17:27 Temperature 98.7 F Pulse Rate 67 57 L 56 L Respiratory Rate 15 14 Blood Pressure 113/72 Pulse Oximetry 97 98 Oxygen Delivery Method Room Air 10/08/24 17:27 10/08/24 17:30 10/08/24 18:00 Temperature Pulse Rate 55 L 54 L Respiratory Rate 12 Blood Pressure 105/69 Pulse Oximetry 98 97 Oxygen Delivery Method 10/08/24 18:30 10/08/24 18:42 10/08/24 18:42 Temperature Pulse Rate 55 L 58 L Respiratory Rate 13 16 Blood Pressure 105/70 Pulse Oximetry 96 96 Oxygen Delivery Method 10/08/24 18:44 10/08/24 18:44 10/08/24 18:47 Temperature Pulse Rate 63 Respiratory Rate 17 Blood Pressure 155/84 H 163/88 H Pulse Oximetry 97 Oxygen Delivery Method 10/08/24 18:47 10/08/24 19:00 10/08/24 19:00 Temperature Pulse Rate 65 59 L Respiratory Rate 25 H 15 Blood Pressure 134/74 Pulse Oximetry 98 96 Oxygen Delivery Method 10/08/24 19:30 10/08/24 19:31 10/08/24 19:31 Temperature Pulse Rate 67 64 Respiratory Rate 15 24 Blood Pressure 106/62 Pulse Oximetry 95 97 Oxygen Delivery Method 10/08/24 19:36 10/08/24 19:36 10/08/24 20:00 Temperature Pulse Rate 65 62 Respiratory Rate 10 L 14 Blood Pressure 121/80 Pulse Oximetry 97 97 Oxygen Delivery Method 10/08/24 20:00 Temperature Pulse Rate Respiratory Rate Blood Pressure 109/75 Pulse Oximetry Oxygen Delivery Method <Ignacio Wolff, DO - Last Filed: 10/08/24 20:55> Orders Ordered: ED Orders 10/08/24 16:35 Complete Blood Count AUTO DIFF Stat Comprehensive Metabolic Panel Stat Lipase Stat Magnesium Stat NT-proBNP (BNP-Adult 18+) Stat PTT Partial Thromboplastin Yoan Stat Prothrombin Time INR Stat Troponin & CK Cardiac Panel Stat 10/08/24 16:41 XR chest 1V Stat EKG-12 Lead Stat 10/08/24 18:55 CT angio head and neck Stat CT head/brain wo con Stat Vital Signs Vital signs: Vital Signs - 8 hr 10/08/24 16:36 10/08/24 17:24 10/08/24 17:27 Temperature 98.7 F Pulse Rate 67 57 L 56 L Respiratory Rate 15 14 Blood Pressure 113/72 Pulse Oximetry 97 98 Oxygen Delivery Method Room Air 10/08/24 17:27 10/08/24 17:30 10/08/24 18:00 Temperature Pulse Rate 55 L 54 L Respiratory Rate 12 Blood Pressure 105/69 Pulse Oximetry 98 97 Oxygen Delivery Method 10/08/24 18:30 10/08/24 18:42 10/08/24 18:42 Temperature Pulse Rate 55 L 58 L Respiratory Rate 13 16 Blood Pressure 105/70 Pulse Oximetry 96 96 Oxygen Delivery Method 10/08/24 18:44 10/08/24 18:44 10/08/24 18:47 Temperature Pulse Rate 63 Respiratory Rate 17 Blood Pressure 155/84 H 163/88 H Pulse Oximetry 97 Oxygen Delivery Method 10/08/24 18:47 10/08/24 19:00 10/08/24 19:00 Temperature Pulse Rate 65 59 L Respiratory Rate 25 H 15 Blood Pressure 134/74 Pulse Oximetry 98 96 Oxygen Delivery Method 10/08/24 19:30 10/08/24 19:31 10/08/24 19:31 Temperature Pulse Rate 67 64 Respiratory Rate 15 24 Blood Pressure 106/62 Pulse Oximetry 95 97 Oxygen Delivery Method 10/08/24 19:36 10/08/24 19:36 10/08/24 20:00 Temperature Pulse Rate 65 62 Respiratory Rate 10 L 14 Blood Pressure 121/80 Pulse Oximetry 97 97 Oxygen Delivery Method 10/08/24 20:00 Temperature Pulse Rate Respiratory Rate Blood Pressure 109/75 Pulse Oximetry Oxygen Delivery Method MDM - Dizziness <José Manuel Veloz MD - Last Filed: 10/14/24 18:43> Lab Data 10/08/24 16:35 10/08/24 16:35 Labs: Lab Results 10/08/24 Range/Units 16:35 WBC 4.8 (4.5-11.0) X10^3/uL RBC 4.83 (4.5-5.9) X10^6/uL Hgb 13.7 (13.5-17.5) g/dL Hct 39.7 L (41-53) % MCV 82.1 (80-100) fL MCH 28.4 (26-34) PG MCHC 34.6 (30-36) % RDW 17.9 H (11.6-14.8) % Plt Count 212 (150-400) X10^3/uL Neut % (Auto) 63.6 (50-75) % Lymph % (Auto) 19.2 L (25-40) % [place] % (Auto) 9.6 (3-14) % Eos % (Auto) 6.4 H (2-4) % Baso % (Auto) 1.2 (0-2) % Neut # (Auto) 3100 (3796-6746) /uL Lymph # (Auto) 900 L (1763-5680) /uL [place] # (Auto) 500 (0-900) /uL Eos # (Auto) 300 (0-450) /uL Baso # (Auto) 100 (0-100) /uL PT 11.4 (9.4-12.5) SECONDS INR 1.0 (0.9-1.3) APTT 31 (25.1-36.5) SECONDS Sodium 137 (137-145) mmol/L Potassium 4.1 (3.4-5.1) mmol/L Chloride 103 (98-107) mmol/L Carbon Dioxide 26 (22-32) mmol/L BUN 20 (9-20) mg/dL Creatinine 1.05 (0.66-1.25) mg/dL Estimated GFR > 60 (>60) mL/min BUN/Creatinine Ratio 19.0 (6-22) Glucose 106 H (70-99) mg/dL Calcium 9.5 (8.4-10.2) mg/dL Magnesium 1.9 (1.6-2.3) mg/dL Total Bilirubin 0.5 (0.2-1.3) mg/dL AST 39 (17-59) IU/L ALT 32 (<50) IU/L Alkaline Phosphatase 95 (38-126) U/L Total Creatine Kinase 98 (55-170) U/L Troponin I < 0.012 (0.01-0.034) ng/mL NT-Pro-B Natriuret Pep 105 (<125) pg/mL Total Protein 8.7 H (6.3-8.2) g/dL Albumin 4.5 (3.5-5.0) g/dL Globulin 4.2 H (1.7-4.1) g/dL Albumin/Globulin Ratio 1.1 (1.0-2.8) Lipase 198 (23-300) U/L <Ignacio Wolff, DO - Last Filed: 10/08/24 20:55> Lab Data Labs: Lab Results 10/08/24 Range/Units 16:35 WBC 4.8 (4.5-11.0) X10^3/uL RBC 4.83 (4.5-5.9) X10^6/uL Hgb 13.7 (13.5-17.5) g/dL Hct 39.7 L (41-53) % MCV 82.1 (80-100) fL MCH 28.4 (26-34) PG MCHC 34.6 (30-36) % RDW 17.9 H (11.6-14.8) % Plt Count 212 (150-400) X10^3/uL Neut % (Auto) 63.6 (50-75) % Lymph % (Auto) 19.2 L (25-40) % [place] % (Auto) 9.6 (3-14) % Eos % (Auto) 6.4 H (2-4) % Baso % (Auto) 1.2 (0-2) % Neut # (Auto) 3100 (5625-0862) /uL Lymph # (Auto) 900 L (1320-3011) /uL [place] # (Auto) 500 (0-900) /uL Eos # (Auto) 300 (0-450) /uL Baso # (Auto) 100 (0-100) /uL PT 11.4 (9.4-12.5) SECONDS INR 1.0 (0.9-1.3) APTT 31 (25.1-36.5) SECONDS Sodium 137 (137-145) mmol/L Potassium 4.1 (3.4-5.1) mmol/L Chloride 103 (98-107) mmol/L Carbon Dioxide 26 (22-32) mmol/L BUN 20 (9-20) mg/dL Creatinine 1.05 (0.66-1.25) mg/dL Estimated GFR > 60 (>60) mL/min BUN/Creatinine Ratio 19.0 (6-22) Glucose 106 H (70-99) mg/dL Calcium 9.5 (8.4-10.2) mg/dL Magnesium 1.9 (1.6-2.3) mg/dL Total Bilirubin 0.5 (0.2-1.3) mg/dL AST 39 (17-59) IU/L ALT 32 (<50) IU/L Alkaline Phosphatase 95 (38-126) U/L Total Creatine Kinase 98 (55-170) U/L Troponin I < 0.012 (0.01-0.034) ng/mL NT-Pro-B Natriuret Pep 105 (<125) pg/mL Total Protein 8.7 H (6.3-8.2) g/dL Albumin 4.5 (3.5-5.0) g/dL Globulin 4.2 H (1.7-4.1) g/dL Albumin/Globulin Ratio 1.1 (1.0-2.8) Lipase 198 (23-300) U/L Imaging Data CT scan - head: Radiologist's Impression: [address] [address] [address] Scan Report Signed Patient: Stephane Sun MR#: [id number] : 1950 Acct:[id number] Age/Sex: 74 / M Date of Service: 10/08/24 Loc: ED Accession Number: [id number] Procedure: CT angio head and neck Ordering Provider: José Manuel Veloz MD PROCEDURE: CT ANGIO HEAD AND NECK INDICATIONS: TIA TECHNIQUE: After the administration of intravenous contrast, 1 mm thick sections acquired from the aortic arch through the [place] of [place]. 3-dimensional tiwisee-zbxusshqa-neoytdfdol (MIP) and/or volume rendering reformats were acquired of the central intracranial vasculature and neck separately. For radiation dose reduction, the following was used: automated exposure control, adjustment of mA and/or kV according to patient size. COMPARISON: [facility], CT, CT HEAD/BRAIN WO CON, 10/08/2024, 18:59. [facility], CT, CT SOFT TISSUE NECK WITH CONTRAST, 07/28/2024, 12:37. [facility], CT, CT ANGIO HEAD AND NECK, 03/29/2022, 16:09. FINDINGS: Image quality: Diagnostic. Cerebral CT Angiogram: Internal carotid arteries: No acute findings. Intracranial ICA are patent with no significant stenosis. No occlusion. No aneurysm. Anterior cerebral arteries: Unremarkable. No significant stenosis. No occlusion. No aneurysm. Middle cerebral arteries: Unremarkable. No significant stenosis. No occlusion. No aneurysm. Posterior cerebral arteries: Unremarkable. No significant stenosis. No occlusion. No aneurysm. Basilar artery: Unremarkable. No significant stenosis. No occlusion. No aneurysm. Vertebral arteries: Unremarkable as visualized. Dural venous sinuses: Unremarkable given phase of enhancement. Other: Arterial phase appearance of the brain parenchyma is unremarkable. Neck CT Angiogram: Internal carotid arteries: Severe stenosis of the right ICA at its origin string sign, (9/115), similar to 07/28/2024 but worsened compared to 2022. Moderate calcified plaque. Left ICA less than 50% stenosis. Moderate calcified plaque. No dissection. Common carotid arteries: Unremarkable. No significant stenosis. No dissection or occlusion. External carotid arteries: Unremarkable. No occlusion. Vertebral arteries: Unremarkable. No significant stenosis. No dissection or occlusion. Aortic Arch and Mediastinum: Calcified plaque at the aortic arch is. Partially visualized aortic arch unremarkable without evidence of aneurysm. Origins of the great vessels unremarkable. Other: Arterial phase soft tissues of the neck and chest are unremarkable. Bones: Advanced multilevel degenerative changes. IMPRESSION: 1. No large vessel occlusion. 2. Severe right ICA stenosis, near occlusion. Not significantly changed compared to 07/28/2024. 3. Less than 50% stenosis of the left ICA. Any quantitative measurements of stenosis were performed using NASCET criteria. Carotid ultrasound may be helpful for further evaluation. Dictated by: Beto Kang M.D. on 10/08/2024 at 20:27 Approved by: Beto Kang M.D. on 10/08/2024 at 20:[address] [place] [id number] Scan Report Signed Patient: Stephane Sun MR#: [id number] : 1950 Acct:[id number] Age/Sex: 74 / M Date of Service: 10/08/24 Loc: ED Accession Number: [id number] Procedure: CT head/brain wo con Ordering Provider: José Manuel Veloz MD PROCEDURE: CT HEAD/BRAIN WO CON INDICATIONS: TIA TECHNIQUE: Noncontrast 4.5 mm thick angled axial sections acquired from the foramen magnum to the vertex, with coronal and sagittal reformats. For radiation dose reduction, the following was used: automated exposure control, adjustment of mA and/or kV according to patient size. COMPARISON: [facility], CT, CT HEAD/BRAIN WO CON, 09/10/2021, 10:26. FINDINGS: Image quality: Diagnostic. CSF spaces: Basal cisterns are patent. No extra-axial fluid collections. Ventricles are normal in size and shape. Brain: No midline shift. No intracranial mass effect or hemorrhage. Oliveira- white matter interface is within normal limits. Skull and face: Calvarium and visualized facial bones are intact, without suspicious lesions. Sinuses: Visualized sinuses and mastoids are clear. IMPRESSION: No acute intracranial hemorrhage. Dictated by: Beto Kang M.D. on 10/08/2024 at 19:49 Approved by: Beto Kang M.D. on 10/08/2024 at 19:51 Chest x-ray: Radiologist's Impression: [address] [address] XRay Report Signed Patient: Stephane Sun MR#: [id number] : 1950 Acct:[id number] Age/Sex: 74 / M Date of Service: 10/08/24 Loc: ED Accession Number: [id number] Procedure: XR chest 1V Ordering Provider: Aleks Garner MD PROCEDURE: XR CHEST 1V INDICATIONS: Chest Pain TECHNIQUE: One view of the chest was acquired. COMPARISON: [facility], CT, CT CHEST ABDOMEN PELVIS WITH CONTRAST, 07/28/2024, 12:37. [facility], CR, XR CHEST 1V, 06/20/2022, 9:29. FINDINGS: Surgical changes and devices: None. Lungs and pleura: On this semiupright portable chest examination, no large pneumothorax or large pleural effusions are seen. No focal infiltrates are seen. Mediastinum: Mediastinal contours appear normal. Heart size is normal. Bones and chest wall: No suspicious bony lesions. Age-appropriate bony degenerative changes are seen. Overlying soft tissues appear unremarkable. IMPRESSION: Limited portable chest examination, without a significant cardiopulmonary abnormality identified. MDM Narrative Medical decision making narrative: All lab work, vital signs, nurse triage note, medication list, previous ER visits, and all imaging studies reviewed. CT head and neck showed no large vessel occlusion but severe right ICA stenosis near occlusion not significantly changed compared to 07/28/2024. Less than 50% stenosis of the left ICA. EKG shows sinus bradycardia heart rate of [address] T wave changes. Patient was offered admission but declined this time and wanted to leave against medical advice and disability were discussed with them as complications of leaving but patient still was adamant he wanted to go home instead. Discharge Plan Departure Patient Disposition: Left Against Medical Advice Clinical Impression: Left against medical advice Prescriptions: No Action atorvastatin 40 mg tablet 80 mg PO BEDTIME Qty: 180 3RF Rx Instructions: cannot swallow large 80mg tablet levothyroxine 100 mcg tablet 100 mcg PO DAILY Qty: 90 3RF clopidogrel 75 mg tablet 75 mg PO DAILY meclizine 25 mg tablet 25 mg PO TID terbinafine HCl 250 mg tablet 250 mg PO DAILY Qty: 14 1RF aspirin 81 mg Tablet,Delayed Release (Dr/Ec) 81 mg PO DAILY Qty: 1 0RF Rx Instructions: OTC Referrals: Preet Mcdaniel MD [Primary Care Provider, Internal Medicine] Stand Alone Forms: Patient Portal/API, Against Med. Advice (Macedonian)
== END 2024-10-08 21:52 | disposition left against medical advice (07) ==
PROVIDERS: Emergency Medicine; Emergency Provider Family Medicine; PCP Internal Medicine
DX: R42 Dizziness and giddiness (principal); R07.9 Chest pain, unspecified; R11.2 Nausea with vomiting, unspecified; R00.1 Bradycardia, unspecified
CPT/HCPCS: 70450; 70496; 70498; 71045; 80053; 82550; 83690; 83735; 83880; 84484; 85025; 85610; 85730; 93005; 99283; 99284; Q9967

== ENCOUNTER 2024-10-11 08:23 | Emergency (ER) | payer MEDICARE, OTHER, SELFPAY ==
[2022-03-30 10:23] VITALS: BMI 26.3
[2024-10-11] VITALS (24 sets, daily range): BP systolic 100–136; BP diastolic 58–89; PULSE 49–78; RESP 11–23; TEMP 36.9; O2SAT 94–100; BMI 23.8
--- NOTE | 2024-10-11 08:36 | EKG_ITS ---
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
--- NOTE | 2024-10-11 08:50 | ED.WEAKNESS ---
HPI - Weakness General Chief complaint: Weakness Stated complaint: weakness/dizziness Time Seen by Provider: 10/11/24 08:29 History of Present Illness HPI Narrative: This is a 74-year-old male with a history of head and neck cancer who received radiation/surgery approximately 5-6 years ago, hypertension, peripheral vascular disease presenting with dizziness and weakness again. He left against medical advice on October 08, 2024 recently here in this ED. CT head and neck showed no large vessel occlusion but severe right ICA stenosis near occlusion not significantly changed compared to 07/28/2024. Less than 50% stenosis of the left ICA. Related Data Previous Rx's ?Medication ?Instructions ?Recorded aspirin 81 mg tablet,delayed 81 mg PO DAILY #1 tab 03/30/22 release atorvastatin 40 mg tablet 80 mg (2 x 40 mg) PO BEDTIME #180 03/20/24 tabs levothyroxine 100 mcg tablet 100 mcg PO DAILY #90 tabs 04/23/24 amlodipine 10 mg tablet 10 mg PO DAILY #90 tabs 09/09/24 terbinafine HCl 250 mg tablet 250 mg PO DAILY #14 tabs 10/09/24 Allergies Allergy/AdvReac Type Severity Reaction Status Date / Time No Known Drug Allergies Allergy Verified 10/09/24 11:34 Review of Systems Review of Systems ROS Unobtainable: All systems reviewed & are unremarkable except as noted in HPI and below Patient History Medical History Dysphagia (03/22/17) Essential hypertension Hx of tongue cancer (2018) Hypothyroid Left subclavian artery occlusion Malignant neoplasm of head and neck (03/26/15) Right retinal artery branch occlusion Stenosis of right carotid artery Tobacco use disorder Vision loss Surgical History History of radical neck dissection Family History Father Age: 94 Hx of CABG Mother Age: 92 Pacemaker Social History details: , 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 Patient describes a generalized weakness and dizziness. No unilateral weakness to suggest an active TIA or stroke. We will consult [facility] where the patient has been referred already. Orders Ordered: ED Orders 10/11/24 08:51 BNP [NT-proBNP (BNP-Adult 18+)] Stat CBC Auto Diff [Complete Blood Count AUTO DIFF] Stat CMP [Comprehensive Metabolic Panel] Stat D Dimer Stat Troponin I Stat 10/11/24 09:38 EKG-12 Lead Stat Discontinued Medications Clopidogrel Bisulfate (Clopidogrel 75 Mg Tablet) 150 mg PO NOW ONE Stop: 10/11/24 10:59 Last Admin: 10/11/24 11:05 Dose: 150 mg Documented By: FILIBERTO Consultations Consultation #1: spoke with vascular at [facility] Dr. Farris who suggested starting plavix but did not feel he needed to be immediately admitted and intervened but needs to have it done sooner than later. Time: 09:50 Consultation #2: hospitalist Dr. Adan accepted patient at [facility] to be transferred. Vital Signs Vital signs: Vital Signs - 8 hr 10/11/24 08:26 10/11/24 08:27 10/11/24 08:30 Temperature Pulse Rate 68 65 Respiratory Rate Blood Pressure 126/89 Pulse Oximetry 98 98 Oxygen Delivery Method 10/11/24 08:32 10/11/24 08:33 10/11/24 08:33 Temperature 98.4 F Pulse Rate 64 64 Respiratory Rate 16 20 Blood Pressure 123/69 110/80 Pulse Oximetry 97 100 Oxygen Delivery Method Room Air 10/11/24 09:00 10/11/24 09:02 10/11/24 09:02 Temperature Pulse Rate 57 L 64 Respiratory Rate 12 19 Blood Pressure 107/63 Pulse Oximetry 98 95 Oxygen Delivery Method 10/11/24 09:30 10/11/24 09:31 10/11/24 09:31 Temperature Pulse Rate 55 L 55 L Respiratory Rate 14 16 Blood Pressure 122/70 Pulse Oximetry 97 96 Oxygen Delivery Method 10/11/24 09:58 Temperature Pulse Rate 78 Respiratory Rate 23 Blood Pressure Pulse Oximetry 94 Oxygen Delivery Method MDM - Weakness Differential Diagnosis Differential diagnosis: Likely sepsis, dehydration and other (right ica stenosis ) Lab Data 10/11/24 08:51 10/11/24 08:51 Labs: Lab Results 10/11/24 Range/Units 08:51 WBC 4.9 (4.5-11.0) X10^3/uL RBC 5.01 (4.5-5.9) X10^6/uL Hgb 14.1 (13.5-17.5) g/dL Hct 42.0 (41-53) % MCV 83.7 (80-100) fL MCH 28.1 (26-34) PG MCHC 33.6 (30-36) % RDW 17.7 H (11.6-14.8) % Plt Count 191 (150-400) X10^3/uL Neut % (Auto) 68.2 (50-75) % Lymph % (Auto) 15.2 L (25-40) % [place] % (Auto) 8.9 (3-14) % Eos % (Auto) 6.7 H (2-4) % Baso % (Auto) 1.0 (0-2) % Neut # (Auto) 3300 (7709-6955) /uL Lymph # (Auto) 700 L (2728-3015) /uL [place] # (Auto) 400 (0-900) /uL Eos # (Auto) 300 (0-450) /uL Baso # (Auto) 0 (0-100) /uL D-Dimer 696 H (<500) ng/ml Sodium 137 (137-145) mmol/L Potassium 4.4 (3.4-5.1) mmol/L Chloride 105 (98-107) mmol/L Carbon Dioxide 25 (22-32) mmol/L BUN 21 H (9-20) mg/dL Creatinine 1.06 (0.66-1.25) mg/dL Estimated GFR > 60 (>60) mL/min BUN/Creatinine Ratio 19.8 (6-22) Glucose 94 (70-99) mg/dL Calcium 9.6 (8.4-10.2) mg/dL Total Bilirubin 0.6 (0.2-1.3) mg/dL AST 39 (17-59) IU/L ALT 30 (<50) IU/L Alkaline Phosphatase 99 (38-126) U/L Troponin I < 0.012 (0.01-0.034) ng/mL NT-Pro-B Natriuret Pep 114 (<125) pg/mL Total Protein 8.7 H (6.3-8.2) g/dL Albumin 4.5 (3.5-5.0) g/dL Globulin 4.2 H (1.7-4.1) g/dL Albumin/Globulin Ratio 1.1 (1.0-2.8) ECG Data Interpretation: EKG shows a normal sinus rhythm with left axis deviation 60 beats per minute normal [place] intervals normals, no STT wave changes. Previous EKG showed a sinus bradycardia with a left axis deviation at that time as well. MDM Narrative Medical decision making narrative: 74-year-old male who is here in the ER for the 2nd time within 3 days. Patient has a complete right ICA occlusion. He may need a stent in the future and after discussion with the vascular surgeon it was decided to start the patient on a loading dose of Plavix 150 mg p.o. x1 today and we will continue with Plavix 75 mg daily afterwards. Patient is currently stable but continues to have some dizziness and generalized weakness. Patient was accepted for admission through the hospitalist team over at [facility]. Discharge Plan Departure Patient Disposition: [facility] Clinical Impression: Stenosis of right carotid artery, Dizziness Prescriptions: No Action atorvastatin 40 mg tablet 80 mg PO BEDTIME Qty: 180 3RF Rx Instructions: cannot swallow large 80mg tablet levothyroxine 100 mcg tablet 100 mcg PO DAILY Qty: 90 3RF amlodipine 10 mg tablet 10 mg PO DAILY Qty: 90 3RF terbinafine HCl 250 mg tablet 250 mg PO DAILY Qty: 14 1RF aspirin 81 mg Tablet,Delayed Release (Dr/Ec) 81 mg PO DAILY Qty: 1 0RF Rx Instructions: OTC Referrals: Preet Mcdaniel MD [Primary Care Provider, Internal Medicine]
[2024-10-11 09:15] LABS: Add Manual Diff / Slide Review NO; Hematocrit 42.0 % (41-53); Hemoglobin 14.1 g/dL (13.5-17.5); Lymphocytes Absolute Auto 700 /uL (1100-4500); Mean Corpuscular HGB Conc 33.6 % (30-36); Mean Corpuscular Hemoglobin 28.1 PG (26-34); Mean Corpuscular Volume 83.7 fL (80-100); Platelet Count 191 X10^3/uL (150-400)
[2024-10-11 09:22] LABS: Alanine Aminotransferase 30 IU/L (<50); Albumin 4.5 g/dL (3.5-5.0); Albumin Globulin Ratio 1.1 (1.0-2.8); Alkaline Phosphatase 99 U/L (38-126); Blood Urea Nitrogen 21 mg/dL (9-20); Calcium 9.6 mg/dL (8.4-10.2); Carbon Dioxide 25 mmol/L (22-32); Chloride 105 mmol/L (98-107); Estimated Glomerular Filt Rate > 60 mL/min (>60); Globulin 4.2 g/dL (1.7-4.1); Glucose 94 mg/dL (70-99); HEMOLYSIS < 15 (0-50); Potassium 4.4 mmol/L (3.4-5.1); Sodium 137 mmol/L (137-145); Total Protein 8.7 g/dL (6.3-8.2)
[2024-10-11 09:33] LABS: NT-proBNP (BNP-Adult 18+) 114 pg/mL (<125); Troponin I < 0.012 ng/mL (0.01-0.034)
--- NOTE | 2024-10-11 09:58 | PC.NURSE ---
Patient up and ambulated to restroom, slow steady gate, reports fatigue with ambulation I cant go fast
[2024-10-11] MEDS: CLOPIDOGREL 75 MG TABLET 150 MG PO (11:05)
[2024-10-11] MEDS: DEXTROSE 5%-0.45% NS 1,000 ML 75 ML IV (14:32)
== END 2024-10-11 15:10 | disposition short-term general hospital (02) ==
PROVIDERS: Emergency Provider Family Medicine; PCP Internal Medicine
DX: I65.21 Occlusion and stenosis of right carotid artery (principal); R42 Dizziness and giddiness
CPT/HCPCS: 36415; 80053; 83880; 84484; 85025; 85379; 93005; 96360; 99284

== ENCOUNTER → 2025-03-09 15:59 | Outpatient (CLI) | payer MEDICARE, OTHER, SELFPAY ==
[2022-03-30 10:23] VITALS: BMI 26.3
[2025-03-09 17:05] LABS: Hematocrit 39.5 % (41-53); Hemoglobin 13.3 g/dL (13.5-17.5); Mean Corpuscular HGB Conc 33.7 % (30-36); Mean Corpuscular Hemoglobin 27.8 PG (26-34); Mean Corpuscular Volume 82.5 fL (80-100); Platelet Count 197 X10^3/uL (150-400)
[2025-03-09 17:41] LABS: Alanine Aminotransferase 24 IU/L (<50); Albumin 4.1 g/dL (3.5-5.0); Albumin Globulin Ratio 1.2 (1.0-2.8); Alkaline Phosphatase 73 U/L (38-126); Blood Urea Nitrogen 21 mg/dL (9-20); Calcium 9.4 mg/dL (8.4-10.2); Carbon Dioxide 26 mmol/L (22-32); Chloride 105 mmol/L (98-107); Cholesterol 105 mg/dL (140-199); Estimated Glomerular Filt Rate > 60 mL/min (>60); Globulin 3.5 g/dL (1.7-4.1); Glucose 83 mg/dL (70-99); HDL Cholesterol 28 mg/dL (40-60); HEMOLYSIS 26 (0-50); Potassium 4.2 mmol/L (3.4-5.1); Sodium 139 mmol/L (137-145); Total Protein 7.6 g/dL (6.3-8.2); Triglycerides 189 mg/dL (35-150)
[2025-03-09 18:11] LABS: TSH w/ Reflex to FT4 2.17 uIU/mL (0.47-4.68)
[2025-03-09 18:12] LABS: Prostate Specific Antigen 0.527 ng/mL (0.10-4.00)
== END ==
PROVIDERS: PCP Internal Medicine; Referring Provider Internal Medicine; Visit Provider Internal Medicine
DX: E03.9 Hypothyroidism, unspecified (principal); N40.1 Benign prostatic hyperplasia with lower urinary tract symptoms; E78.2 Mixed hyperlipidemia; N13.8 Other obstructive and reflux uropathy
CPT/HCPCS: 36415; 80053; 80061; 84153; 84443; 85027